=== PATIENT | male | born 1985 | race African-American/Black ===

== ENCOUNTER 2018-01-25 19:24 | Emergency (ER) | payer MEDICAID ==
[~2018-01-25] VITALS: Ht 177.8 cm; Wt 72.6 kg
[2018-01-25] MEDS ORDERED: Acetaminophen 500mg (ES) tab ORAL ONE (19:45)
[2018-01-25] MEDS ORDERED: STRIBILD TABLE1 EACH PO (20:09)
[2018-01-25] MEDS ORDERED: BACTRIM DOUBLE S1 E1 ORAL (20:09)
[2018-01-25 20:32] VITALS: BP 111/70
[2018-01-25 21:05] LABS: HEMATOCRIT 34.1 % (42.0-52.0); HEMOGLOBIN 11.4 G/DL (14.2-18.0); MEAN CORPUSCULAR VOLUME 84 FL (80-99); PLATELET COUNT 228 K/UL (150-450); RED BLOOD COUNT 4.08 M/UL (4.70-6.10); RED CELL DISTRIBUTION WIDTH 13.2 % (11.6-14.8)
[2018-01-25 21:12] LABS: ANION GAP 8 mmol/L (5-15); BLOOD UREA NITROGEN 8 mg/dL (7-18); CARBON DIOXIDE 28 MMOL/L (21-32); CHLORIDE 101 MMOL/L (98-107); CREATININE 1.1 MG/DL (0.55-1.30); POTASSIUM 3.3 MMOL/L (3.5-5.1); SODIUM 137 MMOL/L (136-145)
[2018-01-25 21:24] LABS: ALANINE AMINOTRANSFERASE 25 U/L (12-78); ALBUMIN 2.5 G/DL (3.4-5.0); ALBUMIN/GLOBULIN RATIO 0.4 (1.0-2.7); ALKALINE PHOSPHATASE 209 U/L (46-116); ASPARTATE AMINO TRANSFERASE 21 U/L (15-37); BILIRUBIN,TOTAL 0.3 MG/DL (0.2-1.0)
--- NOTE | 2018-01-25 21:59 | Emergency Room Report ---
History of Present Illness General Chief Complaint: Generalized Weakness Source: EMS Present Illness HPI 32-year-old male presents ED for evaluation of weakness. Brought in by EMS. States that he's been feeling weak for the last 10 days. States he has been using drugs but stopped approximately 10 days ago. Also having multiple episodes of diarrhea. Also feeling feverish. Temperature 102.4 in triage. History of HIV and states he is not taking his medications for several months now. Denies any cough. Denies any sick contacts or recent travel. No other aggravating relieving factors. Denies any other associated symptoms Allergies: Coded Allergies: No Known Allergies (Unverified , 01/25/18) Patient History Past Medical History: none Past Surgical History: none Pertinent Family History: none Social History: Denies: smoking, alcohol use, drug use Immunizations: UTD Reviewed Nursing Documentation: PMH: Agreed; PSxH: Agreed Review of Systems All Other Systems: negative except mentioned in HPI Physical Exam Vital Signs Date Time Temp Pulse Resp B/P (MAP) Pulse Ox O2 Delivery O2 Flow Rate FiO2 01/25/18 19:20 102.4 107 18 108/72 96 Room Air 102.4 Sp02 EP Interpretation: reviewed, normal General Appearance: no apparent distress, alert, GCS 15, non-toxic Head: normocephalic, atraumatic Eyes: bilateral eye normal inspection, bilateral eye PERRL ENT: hearing grossly normal, normal pharynx, no angioedema, normal voice Neck: full range of motion, supple/symm/no masses Respiratory: chest non-tender, lungs clear, normal breath sounds, speaking full sentences Cardiovascular #1: regular rate, rhythm, no edema Cardiovascular #2: 2+ carotid (R), 2+ carotid (L), 2+ radial (R), 2+ radial (L) , 2+ dorsalis pedis (R), 2+ dorsalis pedis (L) Gastrointestinal: normal bowel sounds, non tender, soft, non-distended, no guarding, no rebound Rectal: deferred Genitourinary: normal inspection, no CVA tenderness Musculoskeletal: back normal, gait/station normal, normal range of motion, non- tender Neurologic: alert, oriented x3, responsive, motor strength/tone normal, sensory intact, speech normal Psychiatric: judgement/insight normal, memory normal, mood/affect normal, no suicidal/homicidal ideation Reflexes: 3+ bicep (R), 3+ bicep (L), 3+ tricep (R), 3+ tricep (L), 3+ knee (R) , 3+ knee (L) Skin: normal color, no rash, warm/dry, well hydrated Lymphatic: no adenopathy Medical Decision Making Diagnostic Impression: Primary Impression: Episode of generalized weakness Additional Impressions: Colitis HIV (human immunodeficiency virus infection) ER Course Hospital Course 32-year-old male presenting to ED with generalized weakness, diarrhea, fever Differential diagnoses include: Pneumonia, UTI, sepsis, dehydration, MS/ unstable angina Clinical course Patient placed on stretcher. 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 After initial history and physical, I ordered labs, IV fluids, EKG, chest x-ray, blood cultures, UA. given tylenol for fever Labs - leukopenia, K 3.3, hb/hct stable, lactate ok CXR - no acute process Abx given. Given history of noncompliance with HIV meds and persistent diarrhea 10 days I believe patient should be admitted. IV hydration continued Because of insurance patient will be transferred I feel this is a highly complex case requiring extensive working including EKG/ Rhythm strip, Xray/CT/US, Blood/urine lab work, repeat exams while in ED, and administration of strong opiates/narcotics for pain control, admission to hospital or close patient follow up. Diagnosis - episode of generalized weakness, colitis, HIV Transferred in serious condition Labs Test 01/25/18 20:25 White Blood Count 3.0 K/UL (4.8-10.8) Red Blood Count 4.08 M/UL (4.70-6.10) Hemoglobin 11.4 G/DL (14.2-18.0) Hematocrit 34.1 % (42.0-52.0) Mean Corpuscular Volume 84 FL (80-99) Mean Corpuscular Hemoglobin 27.9 PG (27.0-31.0) Mean Corpuscular Hemoglobin Concent 33.4 G/DL (32.0-36.0) Red Cell Distribution Width 13.2 % (11.6-14.8) Platelet Count 228 K/UL (150-450) Mean Platelet Volume 7.1 FL (6.5-10.1) Neutrophils (%) (Auto) % (45.0-75.0) Lymphocytes (%) (Auto) % (20.0-45.0) Monocytes (%) (Auto) % (1.0-10.0) Eosinophils (%) (Auto) % (0.0-3.0) Basophils (%) (Auto) % (0.0-2.0) Sodium Level 137 MMOL/L (136-145) Potassium Level 3.3 MMOL/L (3.5-5.1) Chloride Level 101 MMOL/L (98-107) Carbon Dioxide Level 28 MMOL/L (21-32) Anion Gap 8 mmol/L (5-15) Blood Urea Nitrogen 8 mg/dL (7-18) Creatinine 1.1 MG/DL (0.55-1.30) Estimat Glomerular Filtration Rate > 60 mL/min (>60) Glucose Level 95 MG/DL (74-106) Lactic Acid Level 1.30 mmol/L (0.4-2.0) Calcium Level 8.0 MG/DL (8.5-10.1) Total Bilirubin 0.3 MG/DL (0.2-1.0) Aspartate Amino Transf (AST/SGOT) 21 U/L (15-37) Alanine Aminotransferase (ALT/SGPT) 25 U/L (12-78) Alkaline Phosphatase 209 U/L (46-116) Total Protein 8.4 G/DL (6.4-8.2) Albumin 2.5 G/DL (3.4-5.0) Globulin 5.9 g/dL Albumin/Globulin Ratio 0.4 (1.0-2.7) Chest X-Ray Diagnostic Results Chest X-Ray Diagnostic Results : Chest X-Ray Ordered: Yes # of Views/Limited/Complete: 1 View Indication: Other - weakness EP Interpretation: Yes Interpretation: no consolidation, no effusion, no pneumothorax, no acute cardiopulmonary disease Impression: No acute disease Electronically Signed by: Electronically signed by Claude Joaquin MD Last Vital Signs Date Time Temp Pulse Resp B/P (MAP) Pulse Ox O2 Delivery O2 Flow Rate FiO2 01/25/18 20:32 102.4 102 19 111/70 96 Room Air 102.4 Status: improved Disposition: XFER SHT-TRM HOSP Condition: Serious Referrals: [facility],REFERR[facility] (PCP) Claude Joaquin MD Jan 25, 2018 21:59
[2018-01-25 22:27] VITALS: BP 107/78
[2018-01-25] MEDS ORDERED: Ketorolac 30mg Inj ONE (22:54)
[2018-01-25] MEDS ORDERED: Ketorolac 30mg Inj IV ONE (23:00)
[2018-01-25 23:38] VITALS: BP 116/72
[2018-01-25 23:40] VITALS: BP 116/72
--- NOTE | 2018-01-26 12:33 | Diagnostic Imaging Report ---
This Indication: Weakness Technique: XRAY Chest 1v Comparison: None Findings: Heart size and mediastinal contours are within normal limits given technique. There is no focal consolidation, pneumothorax or pleural effusion. Osseous structures demonstrate no acute abnormality. Impression: No radiographic evidence of acute cardiopulmonary disease.
== END 2018-01-25 23:40 | disposition short-term general hospital (02) ==
LOC: EDBD 19:24 → EMR 20:49
DX: R53.1 Weakness (principal); K52.9 Noninfective gastroenteritis and colitis, unspecified
CPT/HCPCS: 36415; 71045; 80053; 83605; 85007; 85025; 87040; 87181; 96361; 96365; 96375; 99285; J0744; J1885

== ENCOUNTER 2018-09-19 13:56 | Inpatient (IN) | payer MEDICAID ==
[~2018-09-19] VITALS: Ht 177.8 cm; Wt 67.8 kg
[~2018-09-19 13:56] MED LIST: BACTRIM DOUBLE S1 E1 ORAL; STRIBILD TABLE1 EACH PO
--- NOTE | 2018-09-19 14:30 | NUR ---
ED Nurse Note: Pt c/o generalized body and denies injury. Pt also c/o diarrhea. Pt is AAO x4, and ambulates with steady gait.
[2018-09-19] MEDS ORDERED: Isovue-300 100ml vial INJ PRN (15:00)
[2018-09-19 15:18] VITALS: BP 122/75
[2018-09-19 15:22] LABS: BASOPHILS % (AUTO) 0.7 % (0.0-2.0); EOSINOPHILS % (AUTO) 0.4 % (0.0-3.0); HEMATOCRIT 33.5 % (42.0-52.0); HEMOGLOBIN 11.4 G/DL (14.2-18.0); LYMPHOCYTES % (AUTO) 26.7 % (20.0-45.0); MEAN CORPUSCULAR VOLUME 82 FL (80-99); MONOCYTES % (AUTO) 4.2 % (1.0-10.0); NEUTROPHILS % (AUTO) 68.1 % (45.0-75.0); PLATELET COUNT 423 K/UL (150-450); RED BLOOD COUNT 4.09 M/UL (4.70-6.10); WHITE BLOOD COUNT 4.9 K/UL (4.8-10.8)
--- NOTE | 2018-09-19 15:44 | NUR ---
ED Nurse Note: Pt finished drinking oral contrast at 1545.
[2018-09-19 15:47] LABS: CREATINE KINASE 61 U/L (26-308)
[2018-09-19 15:47] LABS: APPEARANCE,URINE SLIGHTLY CLOUDY; BILIRUBIN, URINE 1+ (NEGATIVE); GLUCOSE, URINE (UA) NEGATIVE (NEGATIVE); KETONES,URINE NEGATIVE (NEGATIVE); LEUKOCYTE ESTERASE ,URINE 1+ (NEGATIVE); NITRITE,URINE NEGATIVE (NEGATIVE); PH,URINE 6 (4.5-8.0); PROTEIN,URINE 2+ (NEGATIVE); UROBILINOGEN,URINE NORMAL MG/DL (0.0-1.0)
[2018-09-19 15:48] LABS: ALANINE AMINOTRANSFERASE 21 U/L (12-78); ALBUMIN 2.3 G/DL (3.4-5.0); ALBUMIN/GLOBULIN RATIO 0.3 (1.0-2.7); ALKALINE PHOSPHATASE 118 U/L (46-116); ANION GAP 14 mmol/L (5-15); ASPARTATE AMINO TRANSFERASE 25 U/L (15-37); BILIRUBIN,TOTAL 0.3 MG/DL (0.2-1.0); BLOOD UREA NITROGEN 12 mg/dL (7-18); CALCIUM 8.7 MG/DL (8.5-10.1); CARBON DIOXIDE 27 MMOL/L (21-32); CHLORIDE 97 MMOL/L (98-107); CREATININE 1.1 MG/DL (0.55-1.30); SODIUM 137 MMOL/L (136-145)
[2018-09-19 15:52] LABS: POTASSIUM 2.5 MMOL/L (3.5-5.1)
[2018-09-19 15:53] LABS: COLOR,URINE AMBER
[2018-09-19 16:40] VITALS: BP 124/83
--- NOTE | 2018-09-19 16:40 | NUR ---
ED Nurse Note: Received pt from Tx 2 room. pt stable and waiting for CT for 1710. hazardous waste material technician made aware.
--- NOTE | 2018-09-19 16:42 | NUR ---
ED Nurse Note: ultrasound technologist was reminded.
--- NOTE | 2018-09-19 17:00 | NUR ---
ED Nurse Note: pt went down for CT scan.
--- NOTE | 2018-09-19 17:10 | NUR ---
ED Nurse Note: Received phone call from CT that pt needs new IV line. went down and new iv line made on Lt ac 20 G.
--- NOTE | 2018-09-19 17:41 | NUR ---
ED Nurse Note: pt came back from CT scan in stable condition.
--- NOTE | 2018-09-19 19:07 | NUR ---
HAND-OFF: Report given to ZENAIDA Gates. all the orders carried.
[2018-09-19 19:10] VITALS: BP 126/86
[2018-09-19] MEDS ORDERED: GENVOYA TABLET1 EACH PO (19:26)
--- NOTE | 2018-09-19 19:45 | Emergency Room Report ---
History of Present Illness General Chief Complaint: Pain Source: EMS (Sammie Chairez) Present Illness HPI 32-year-old male with history of positive HIV for 10 years currently not treated with HIV medications here complaining of 2 weeks of continuous nonbloody diarrhea and vomiting. He reports he was recently hospitalized multiple times for the same issue and was diagnosed with hypokalemia. She has not yet followed up with his primary care physician for hypokalemia and has been intermittently taking his HIV medications for the past 10 years. He reports he has a prescription of his medication at the pharmacy which he has not taken yet. Denies any recent travel, cough, congestion, fever chills, rhinorrhea. He reports diffuse abdominal pain without radiation, rating the pain 7 out of 10 and intermittent. Complains of generalized body ache and reports being lethargic. Complains of chest pain however denies shortness of breath, palpitations, hematuria, blood in the stool or vomit.he reports recent methamphetamine use but reports he stopped using a week ago. (Sammie Chairez) Allergies: Coded Allergies: No Known Allergies (Unverified , 01/25/18) Patient History Past Medical History: see triage record Past Surgical History: none Pertinent Family History: none Social History: Reports: drug use Reviewed Nursing Documentation: PMH: Agreed; PSxH: Agreed (Sammie Chairez) Nursing Documentation-PMH Past Medical History: No History, Except For Hx Neurological Problems: No - HIV (Sammie Chairez) Review of Systems All Other Systems: negative except mentioned in HPI (Sammie Chairez) Physical Exam Vital Signs Date Time Temp Pulse Resp B/P (MAP) Pulse Ox O2 Delivery O2 Flow Rate FiO2 09/19/18 14:04 98.4 92 20 115/69 99 Room Air Sp02 EP Interpretation: abnormal General Appearance: alert, GCS 15, non-toxic, moderate distress, lethargic, thin Eyes: bilateral eye normal inspection, bilateral eye PERRL ENT: hearing grossly normal, normal pharynx, no angioedema, TMs + canals normal Neck: normal inspection, full range of motion, supple Respiratory: normal inspection, chest non-tender, lungs clear, no rhonchi Cardiovascular #1: normal inspection, normal peripheral pulses, regular rate, rhythm, no edema, no murmur Cardiovascular #2: 2+ radial (R), 2+ radial (L) Gastrointestinal: no organomegaly, no peritonitis, no bruit, non-distended, no hernia, no pulsatile mass, no rebound, guarding - diffuse Rectal: deferred Genitourinary: no CVA tenderness Musculoskeletal: normal inspection, back normal Neurologic: normal inspection, alert, oriented x3 Psychiatric: normal inspection Skin: normal inspection, normal color, no rash Lymphatic: normal inspection, no adenopathy (Sammie Chairez) Medical Decision Making PA Attestation all diagnosis and treatment plans were reviewed and discussed with my supervising physician Dr. Costa (Sammie Chairez) Diagnostic Impression: Primary Impression: Hypokalemia Additional Impressions: Noncompliance Diarrhea Qualified Codes: R19.7 - Diarrhea, unspecified ER Course 32-year-old male with history of positive HIV for 10 years currently not treated with HIV medications here complaining of 2 weeks of continuous nonbloody diarrhea and vomiting. He reports he was recently hospitalized multiple times for the same issue and was diagnosed with hypokalemia. She has not yet followed up with his primary care physician for hypokalemia and has been intermittently taking his HIV medications for the past 10 years. He reports he has a prescription of his medication at the pharmacy which he has not taken yet. Denies any recent travel, cough, congestion, fever chills, rhinorrhea. He reports diffuse abdominal pain without radiation, rating the pain 7 out of 10 and intermittent. Complains of generalized body ache and reports being lethargic. Complains of chest pain however denies shortness of breath, palpitations, hematuria, blood in the stool or vomit.he reports recent methamphetamine use but reports he stopped using a week ago. Ddx considered but are not limited to appendicitis, mesenteric ischemia, hypokalemia Vital signs: are WNL, pt. is afebrile H&PE are most consistent with hypokalemia, appendicitis ORDERS: abd CT with contrast, IV NS bolus, potassium ED INTERVENTIONS: potassium and IV bolus . to be admitted K+ 2.5, Hgb 11, Hct33, 1+ blood in UA (Sammie Chairez) ER Course Patient signout to [facility]. He was pending transferred to [facility]. Unfortunately, they do not have any beds over there. Patient was approved to be admitted here. Patient has HIV but noncompliant with his medication. Has profuse diarrhea. This is probably causing his hypokalemia. CT scan showed prominent appendix at 7 mm but no inflammatory changes. On my examination abdomen is soft. No right lower quadrant pain. This is unlikely to be appendicitis. Discussed the case with Dr. Fitch who will admit. (Jeff Amin MD) EKG Diagnostic Results Rate: normal Rhythm: NSR (Sammie Chairez) CT/MRI/US Diagnostic Results CT/MRI/US Diagnostic Results : Imaging Test Ordered: abd CT with contrast Impression CT ABDOMEN & PELVIS With Contrast: Apparent thickening of the colon may be related to underdistention or colitis. Prominent appendix measuring up to 7 mm. No significant periappendiceal inflammatory change, however examination is limited by paucity of intraperitoneal fat. Early acute uncomplicated appendicitis is not excluded. No free fluid, free air, or loculated fluid collection. (Sammie Chairez) Last Vital Signs Date Time Temp Pulse Resp B/P (MAP) Pulse Ox O2 Delivery O2 Flow Rate FiO2 09/19/18 19:10 98.5 89 15 126/86 98 Room Air (Sammie Chairez) Status: improved (Jeff Amin MD) Disposition: ADMITTED INPATIENT Condition: Serious Sammie Chairez Sep 19, 2018 19:45 Jeff Amin MD Sep 19, 2018 22:57
[2018-09-19] MEDS ORDERED: PEPCID AC10 MG PO (20:16)
[2018-09-19] MEDS ORDERED: LANSOPRAZOLE15 MG ORAL (20:16)
[2018-09-19] MEDS ORDERED: AZITHROMYCIN500 MG ORAL (20:16)
[2018-09-19] MEDS ORDERED: IBUPROFEN600 MG ORAL (20:16)
[2018-09-19] MEDS ORDERED: TUMS200 M1 PO (20:16)
[2018-09-19 20:40] VITALS: BP 139/82
--- NOTE | 2018-09-19 21:10 | NUR ---
Spoke with Afshan at [facility], all necessary information given. Will relay information to a doctor and call us back.
[2018-09-19 22:40] VITALS: BP 126/76
--- NOTE | 2018-09-19 23:21 | NUR ---
NURSE NOTES: Received report from ZENAIDA Barroso(ER), pt with diarrhea and pain, no past medical hx besides HIV positive, swabs obtained, med recon completed. will check vitals and belongings when pt arrives.
--- NOTE | 2018-09-19 23:24 | NUR ---
ED Nurse Note: PT report given to Suha Leon MED SURG. pt report, status, condition, and vital signs have been reported. pt vital signs are stable. pt is stable for transfer as per ERMD. pt brought up with all belongings.
--- NOTE | 2018-09-19 23:50 | NUR ---
NURSE NOTES: Pt brought up with belongings, refusing to allow me into his bag, I added pt wallet with $55cash 2 cards 2 cell phones to the belongings list and pt is keeping everything at the bedside, retrieved pt own meds and will give to pharmacy, Vitals 99.6T, 116/79, 94HR, 98%room air, 18rr. will contact Dr. Fitch for admitting orders.
--- NOTE | 2018-09-20 00:15 | NUR ---
NURSE NOTES: Contacted Dr. Fitch and received admitting orders. will follow through with orders.
[2018-09-20] MEDS ORDERED: Tums 500mg ORAL SCH (01:00)
[2018-09-20] MEDS ORDERED: Tums 500mg ORAL PRN (01:30)
[2018-09-20 04:00] VITALS: BP 113/77
[2018-09-20 06:55] LABS: BASOPHILS % (AUTO) 1.2 % (0.0-2.0); HEMATOCRIT 28.9 % (42.0-52.0); HEMOGLOBIN 9.7 G/DL (14.2-18.0); LYMPHOCYTES % (AUTO) 32.3 % (20.0-45.0); MEAN CORPUSCULAR VOLUME 82 FL (80-99); MONOCYTES % (AUTO) 6.8 % (1.0-10.0); NEUTROPHILS % (AUTO) 58.7 % (45.0-75.0); PLATELET COUNT 339 K/UL (150-450); RED BLOOD COUNT 3.54 M/UL (4.70-6.10); RED CELL DISTRIBUTION WIDTH 12.1 % (11.6-14.8); WHITE BLOOD COUNT 3.9 K/UL (4.8-10.8)
--- NOTE | 2018-09-20 07:11 | NUR ---
HAND-OFF: Report given to ZENAIDA Lobo.
[2018-09-20 07:22] LABS: ANION GAP 12 mmol/L (5-15); BLOOD UREA NITROGEN 10 mg/dL (7-18); CARBON DIOXIDE 26 MMOL/L (21-32); CHLORIDE 100 MMOL/L (98-107); CREATININE 1.1 MG/DL (0.55-1.30); SODIUM 137 MMOL/L (136-145)
[2018-09-20 07:25] LABS: POTASSIUM 2.5 MMOL/L (3.5-5.1)
[2018-09-20 08:00] VITALS: BP 112/76
--- NOTE | 2018-09-20 08:58 | NUR ---
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
[2018-09-20] MEDS ORDERED: Lansoprazole 15mg cap ORAL SCH (09:00)
--- NOTE | 2018-09-20 09:49 | Diagnostic Imaging Report ---
Indication: Abdominal pain Technique: Continuous helical transaxial imaging of the abdomen and pelvis was obtained from the lung bases to the pubic symphysis during intravenous contrast administration. Coronal 2-D reformats were also obtained. Study obtained in a Siemens sensation [address] Automatic Exposure Control was utilized. Total Dose length Product (DLP): 490.[address] Dose Index Volume (CTDIvol): 9.67 mGy Comparison: None Findings: There is a relative possibility of intra-abdominal fat. The kidneys are scanned during arterial phase and not optimally evaluated. The gallbladder is contracted. No evidence of bowel obstruction or free air. The colon is diffusely underdistended. Some fecal retention in the rectal vault noted. The appendix is normal. The bladder is nondistended. No abnormalities of solid organs appreciated. IMPRESSION: No acute findings appreciated. Limited evaluation The CT scanner at [facility] is accredited by the [employer] and the scans are performed using dose optimization techniques as appropriate to a performed exam including Automatic Exposure control.
[2018-09-20] MEDS: cefTRIAXone 1 GM in D5W 55 ML IVPB SCH (09:54)
[2018-09-20 10:35] LABS: ANION GAP 12 mmol/L (5-15); BLOOD UREA NITROGEN 9 mg/dL (7-18); CARBON DIOXIDE 28 MMOL/L (21-32); CHLORIDE 101 MMOL/L (98-107); CREATININE 1.1 MG/DL (0.55-1.30); SODIUM 139 MMOL/L (136-145)
[2018-09-20 10:36] LABS: POTASSIUM 2.4 MMOL/L (3.5-5.1)
--- NOTE | 2018-09-20 10:50 | General Progress Note ---
Assessment/Plan Problem List: (1) Anemia ICD Codes: D64.9 - Anemia, unspecified SNOMED: 130570675 (2) HIV (human immunodeficiency virus infection) ICD Codes: B20 - Human immunodeficiency virus [HIV] disease SNOMED: 62928817 (3) Diarrhea ICD Codes: R19.7 - Diarrhea, unspecified SNOMED: 43252674 Qualifiers: Qualified Codes: R19.7 - Diarrhea, unspecified (4) Hypokalemia ICD Codes: E87.6 - Hypokalemia SNOMED: 27457082 (5) Noncompliance ICD Codes: Z91.19 - Patient's noncompliance with other medical treatment and regimen SNOMED: 0874621 Assessment/Plan neg C.diff add imodium prn fu CD4 count and will order more stool studies if low CD4 count recommend ID consult replace K anemia work up colonoscopy if needed and when K is corrected CT reviewed>>> no acute finding Subjective ROS Limited/Unobtainable: Yes Allergies: Coded Allergies: No Known Allergies (Unverified , 01/25/18) Objective Last 24 Hour Vital Signs Date Time Temp Pulse Resp B/P (MAP) Pulse Ox O2 Delivery O2 Flow Rate FiO2 09/20/18 08:00 98.5 89 20 112/76 (88) 100 09/20/18 04:00 99.0 92 18 113/77 (89) 100 09/20/18 00:02 Room Air 09/19/18 23:23 98.5 62 16 130/75 99 Room Air 09/19/18 22:40 98.5 62 16 126/76 99 Room Air 09/19/18 20:40 98.5 71 16 139/82 99 Room Air 09/19/18 19:10 98.5 89 15 126/86 98 Room Air 09/19/18 16:40 98.5 89 14 124/83 99 Room Air 09/19/18 15:18 98.6 76 18 122/75 100 Room Air 09/19/18 14:04 98.4 92 20 115/69 99 Room Air Intake and Output 09/19/18 09/20/18 19:00 07:00 Intake Total 1000 ml 1335 ml Balance 1000 ml 1335 ml Intake Oral 0 ml 960 ml IV Total 1000 ml 375 ml # Voids 3 # Bowel Movements 4 Laboratory Tests 09/19/18 15:03: White Blood Count 4.9, Red Blood Count 4.09L, Hemoglobin 11.4L, Hematocrit 33.5L , Mean Corpuscular Volume 82, Mean Corpuscular Hemoglobin 27.9, Mean Corpuscular Hemoglobin Concent 34.0, Red Cell Distribution Width 12.0, Platelet Count 423, Mean Platelet Volume 5.6L, Neutrophils (%) (Auto) 68.1, Lymphocytes ( %) (Auto) 26.7, Monocytes (%) (Auto) 4.2, Eosinophils (%) (Auto) 0.4, Basophils (%) (Auto) 0.7, Sodium Level 137, Potassium Level 2.5*L, Chloride Level 97L, Carbon Dioxide Level 27, Anion Gap 14, Blood Urea Nitrogen 12, Creatinine 1.1, Estimat Glomerular Filtration Rate > 60, Glucose Level 93, Calcium Level 8.7, Total Bilirubin 0.3, Aspartate Amino Transf (AST/SGOT) 25, Alanine Aminotransferase (ALT/SGPT) 21, Alkaline Phosphatase 118H, Total Creatine Kinase 61, Total Protein 9.4H, Albumin 2.3L, Globulin 7.1, Albumin/Globulin Ratio 0.3L, Lipase 125 09/19/18 15:27: Urine Color [place], Urine Appearance Slightly cloudy, Urine pH 6, Urine Specific [place] 1.015, Urine Protein 2+H, Urine Glucose (UA) Negative, Urine Ketones Negative, Urine Blood 2+H, Urine Nitrite Negative, Urine Bilirubin 1+H, Urine Ictotest Negative, Urine Urobilinogen Normal, Urine Leukocyte Esterase 1+H, Urine RBC 2-4H, Urine WBC 10-15H, Urine Squamous Epithelial Cells Few, Urine Transitional Epithelial Cells ModerateH, Urine Bacteria Few, Urine Mucus ModerateH, Urine Opiates Screen Negative, Urine Barbiturates Screen Negative, Phencyclidine (PCP) Screen Negative, Urine Amphetamines Screen Negative, Urine Benzodiazepines Screen Negative, Urine Cocaine Screen Negative, Urine Marijuana (THC) Screen PositiveH 09/20/18 06:00: White Blood Count 3.9L, Red Blood Count 3.54L, Hemoglobin 9.7L, Hematocrit 28.9L , Mean Corpuscular Volume 82, Mean Corpuscular Hemoglobin 27.4, Mean Corpuscular Hemoglobin Concent 33.6, Red Cell Distribution Width 12.1, Platelet Count 339, Mean Platelet Volume 6.2L, Neutrophils (%) (Auto) 58.7, Lymphocytes ( %) (Auto) 32.3, Monocytes (%) (Auto) 6.8, Eosinophils (%) (Auto) 1.0, Basophils (%) (Auto) 1.2, Sodium Level 137, Potassium Level 2.5*L, Chloride Level 100, Carbon Dioxide Level 26, Anion Gap 12, Blood Urea Nitrogen 10, Creatinine 1.1, Estimat Glomerular Filtration Rate > 60, Glucose Level 89, Calcium Level 8.0L 09/20/18 10:00: Sodium Level 139, Potassium Level 2.4*L, Chloride Level 101, Carbon Dioxide Level 28, Anion Gap 12, Blood Urea Nitrogen 9, Creatinine 1.1, Estimat Glomerular Filtration Rate > 60, Glucose Level 87, Calcium Level 8.0L Height (Feet): 5 Height (Inches): 10.00 Weight (Pounds): 150 General Appearance: alert EENT: normal ENT inspection Neck: supple Cardiovascular: normal rate Respiratory/Chest: lungs clear Abdomen: normal bowel sounds, non tender, soft Extremities: non-tender Francis Angel MD Sep 20, 2018 10:50
--- NOTE | 2018-09-20 11:30 | NUR ---
NURSE NOTES: Nurse has spoken to patient regarding his own med Genvoya. She asked him to try to get someone to bring that medication here, pt said he'll try.
[2018-09-20 12:00] VITALS: BP 124/85
--- NOTE | 2018-09-20 12:54 | Consultation ---
Consult Note Consult Note asked to eval at the request of Dr garcia 32-year-old male with history of positive HIV for 10 years currently not treated with HIV medications here complaining of 2 weeks of continuous nonbloody diarrhea and vomiting. He reports he was recently hospitalized multiple times for the same issue and was diagnosed with hypokalemia. She has not yet followed up with his primary care physician for hypokalemia and has been intermittently taking his HIV medications for the past 10 years. He reports he has a prescription of his medication at the pharmacy which he has not taken yet. Denies any recent travel, cough, congestion, fever chills, rhinorrhea. He reports diffuse abdominal pain without radiation, rating the pain 7 out of 10 and intermittent. Complains of generalized body ache and reports being lethargic. Complains of chest pain however denies shortness of breath, palpitations, hematuria, blood in the stool or vomit.he reports recent methamphetamine use but reports he stopped using a week ago. interviewed data reviewed examined Assessment/Plan HypoKalemia Diarrhea Anemia HIV Noncompliant with meds KCl IV and PO [place] Per GI and ID Martell Cha MD Sep 20, 2018 12:54
--- NOTE | 2018-09-20 13:30 | NUR ---
*-* NO INSURANCE INFORMATION IN THE BAR TO SEND CLINICALS OR REVIEWS *-*
[2018-09-20] MEDS: D5NS w/KCl 40mEq 1000ml 1,000 ML IV SCH (14:43)
[2018-09-20] MEDS ORDERED: Spironolactone 25mg tab ORAL SCH (15:00)
[2018-09-20] MEDS: Morphine Sulfate 2mg/ml Inj(IV/IM USE ONLY) IVP PRN (15:31)
[2018-09-20 16:00] VITALS: BP 125/85
--- NOTE | 2018-09-20 16:38 | Infectious Diseases Prog Note ---
Assessment/Plan Problems: (1) HIV (human immunodeficiency virus infection) Assessment & Plan: poorly complaint with meds, will screen for syphilis and hepatitis , will order CD4 counts and viral load . (2) Diarrhea Assessment & Plan: will order stool culture, ova/parasites, Giardia and entamoeba serology , start metronidazole , continue ceftriaxone (3) Anemia Assessment & Plan: will screen for stool Hemoccult , GI is following may need colonoscopy for further eval (4) Noncompliance Assessment & Plan: patient was adviced to take his HIV meds and to follow up with HIV provider at [facility] which he confirmed to do upon discharge (5) Drug abuse Assessment & Plan: recommend rehabilitation and counseling Subjective Allergies: Coded Allergies: No Known Allergies (Unverified , 01/25/18) Objective Vital Signs Last 24 Hour Vital Signs Date Time Temp Pulse Resp B/P (MAP) Pulse Ox O2 Delivery O2 Flow Rate FiO2 09/20/18 12:00 98.3 88 18 124/85 (98) 100 09/20/18 09:00 Room Air 09/20/18 08:00 98.5 89 20 112/76 (88) 100 09/20/18 04:00 99.0 92 18 113/77 (89) 100 09/20/18 00:02 Room Air 09/19/18 23:23 98.5 62 16 130/75 99 Room Air 09/19/18 22:40 98.5 62 16 126/76 99 Room Air 09/19/18 20:40 98.5 71 16 139/82 99 Room Air 09/19/18 19:10 98.5 89 15 126/86 98 Room Air 09/19/18 16:40 98.5 89 14 124/83 99 Room Air Height (Feet): 5 Height (Inches): 10.00 Weight (Pounds): 150 Microbiology Date/Time Source Procedure Growth Status 09/20/18 01:30 Stool Clostridium difficile Toxin Assay - Final Complete 09/19/18 15:27 Urine,Clean Catch Urine Culture - Preliminary NO GROWTH Resulted 09/19/18 19:30 Rectum Received Laboratory Tests Test 09/20/18 06:00 09/20/18 10:00 09/20/18 10:30 White Blood Count 3.9 K/UL (4.8-10.8) L Red Blood Count 3.54 M/UL (4.70-6.10) L Hemoglobin 9.7 G/DL (14.2-18.0) L Hematocrit 28.9 % (42.0-52.0) L Mean Corpuscular Volume 82 FL (80-99) Mean Corpuscular Hemoglobin 27.4 PG (27.0-31.0) Mean Corpuscular Hemoglobin Concent 33.6 G/DL (32.0-36.0) Red Cell Distribution Width 12.1 % (11.6-14.8) Platelet Count 339 K/UL (150-450) Mean Platelet Volume 6.2 FL (6.5-10.1) L Neutrophils (%) (Auto) 58.7 % (45.0-75.0) Lymphocytes (%) (Auto) 32.3 % (20.0-45.0) Monocytes (%) (Auto) 6.8 % (1.0-10.0) Eosinophils (%) (Auto) 1.0 % (0.0-3.0) Basophils (%) (Auto) 1.2 % (0.0-2.0) Sodium Level 137 MMOL/L (136-145) 139 MMOL/L (136-145) Potassium Level 2.5 MMOL/L (3.5-5.1) *L 2.4 MMOL/L (3.5-5.1) *L Chloride Level 100 MMOL/L (98-107) 101 MMOL/L (98-107) Carbon Dioxide Level 26 MMOL/L (21-32) 28 MMOL/L (21-32) Anion Gap 12 mmol/L (5-15) 12 mmol/L (5-15) Blood Urea Nitrogen 10 mg/dL (7-18) 9 mg/dL (7-18) Creatinine 1.1 MG/DL (0.55-1.30) 1.1 MG/DL (0.55-1.30) Estimat Glomerular Filtration Rate > 60 mL/min (>60) > 60 mL/min (>60) Glucose Level 89 MG/DL (74-106) 87 MG/DL (74-106) Calcium Level 8.0 MG/DL (8.5-10.1) L 8.0 MG/DL (8.5-10.1) L Thyroid Stimulating Hormone (TSH) 0.587 uiU/mL (0.358-3.740) C-Reactive Protein, Quantitative 14.1 mg/dL (0.00-0.90) H Current Medications Medications (Trade) Dose Ordered Sig/Peter Route PRN Reason Start Time Stop Time Status Last Admin Dose Admin Acetaminophen (Tylenol) 650 mg Q4H PRN ORAL Mild Pain/Temp > 100.5 09/20/18 08:30 10/20/18 08:29 Barium Sulfate (Readi-Cat 2) 450 ml NOW PRN ORAL Radiology Procedure 09/19/18 15:00 09/21/18 14:50 Calcium Carbonate (Tums) 500 mg Q4H PRN ORAL Abdominal cramps 09/20/18 01:30 10/20/18 01:29 09/20/18 09:53 Ceftriaxone Sodium 1 gm/ Dextrose 55 ml @ 110 mls/hr Q24H IVPB 09/20/18 09:00 09/27/18 08:59 09/20/18 09:54 Dextrose/ Electrolytes 1,000 ml @ 75 mls/hr [id number] IV 09/20/18 14:00 10/20/18 13:59 09/20/18 14:43 Loperamide HCl (Imodium) 2 mg Q6H PRN NG Diarrhea 09/20/18 10:45 10/20/18 10:44 Morphine Sulfate (Morphine Sulfate) 1 mg EVERY 6 HOURS PRN IVP Severe Breakthru Pain (>7) 09/20/18 00:45 09/27/18 00:44 09/20/18 15:31 Non-Formulary Medication (Non-Formulary Med) 1 ea DAILY ORAL 09/20/18 09:00 10/20/18 08:59 UNV Ondansetron HCl (Zofran) 4 mg EVERY 4 HOURS PRN IVP Nausea & Vomiting 09/20/18 00:45 10/20/18 00:44 Pantoprazole (Protonix) 40 mg EVERY 12 HOURS ORAL 09/20/18 21:00 10/20/18 20:59 Potassium Chloride (K-Dur) 40 meq THREE TIMES A DAY ORAL 09/20/18 13:00 10/20/18 12:59 09/20/18 14:42 Spironolactone (Aldactone) 25 mg DAILY ORAL 09/21/18 09:00 10/21/18 08:59 Spironolactone (Aldactone) 25 mg ONCE ORAL 09/20/18 15:00 09/20/18 18:00 09/20/18 14:44 Diana Alexander M.D. Sep 20, 2018 16:38
[2018-09-20] MEDS: metroNIDAZOLE 500mg tab ORAL SCH ×2 (18:03→21:02)
[2018-09-20 20:00] VITALS: BP 109/80
[2018-09-21] VITALS: BP 113/72
[2018-09-21] MEDS: D5NS w/KCl 40mEq 1000ml 1,000 ML IV SCH ×2 (03:20→13:12)
[2018-09-21 04:00] VITALS: BP 118/70
[2018-09-21] MEDS: metroNIDAZOLE 500mg tab ORAL SCH ×3 (06:05→21:40)
--- NOTE | 2018-09-21 07:15 | NUR ---
HAND-OFF: Report given to ZENAIDA Grace.
--- NOTE | 2018-09-21 07:30 | NUR ---
NURSE NOTES: Received pt from ZENAIDA MATHIAS. Pt is alert and orient x4. Pt is in RA. No SOB or acute respiratory distress noted. pt has diarrhea. pt has intact iv access LAC 20G is running well. pt is eating breakfast by himself. all needs attended, bed is locked and is in the lowest position. call light within easy reach. will continue to monitor.
[2018-09-21 07:33] LABS: BASOPHILS % (AUTO) 1.1 % (0.0-2.0); EOSINOPHILS % (AUTO) 2.3 % (0.0-3.0); HEMATOCRIT 29.1 % (42.0-52.0); HEMOGLOBIN 9.6 G/DL (14.2-18.0); LYMPHOCYTES % (AUTO) 33.1 % (20.0-45.0); MEAN CORPUSCULAR VOLUME 82 FL (80-99); MONOCYTES % (AUTO) 5.2 % (1.0-10.0); NEUTROPHILS % (AUTO) 58.4 % (45.0-75.0); PLATELET COUNT 351 K/UL (150-450); RED BLOOD COUNT 3.54 M/UL (4.70-6.10); RED CELL DISTRIBUTION WIDTH 12.2 % (11.6-14.8); WHITE BLOOD COUNT 3.7 K/UL (4.8-10.8)
[2018-09-21 07:59] LABS: PHOSPHORUS 2.5 MG/DL (2.5-4.9)
[2018-09-21 08:00] VITALS: BP 122/86
[2018-09-21 08:17] LABS: ALANINE AMINOTRANSFERASE 16 U/L (12-78); ALBUMIN 1.8 G/DL (3.4-5.0); ALBUMIN/GLOBULIN RATIO 0.3 (1.0-2.7); ALKALINE PHOSPHATASE 97 U/L (46-116); ANION GAP 9 mmol/L (5-15); ASPARTATE AMINO TRANSFERASE 16 U/L (15-37); BILIRUBIN,TOTAL 0.1 MG/DL (0.2-1.0); BLOOD UREA NITROGEN 7 mg/dL (7-18); CALCIUM 7.9 MG/DL (8.5-10.1); CARBON DIOXIDE 26 MMOL/L (21-32); CHLORIDE 105 MMOL/L (98-107); FERRITIN 527 NG/ML (8-388); POTASSIUM 3.2 MMOL/L (3.5-5.1); SODIUM 140 MMOL/L (136-145)
[2018-09-21 08:18] LABS: % IRON SATURATION 29 % (15-50); IRON 36 ug/dL (50-175); TOTAL IRON BINDING CAPACITY 126 ug/dL (250-450)
--- NOTE | 2018-09-21 08:43 | General Progress Note ---
Assessment/Plan Problem List: (1) Anemia ICD Codes: D64.9 - Anemia, unspecified SNOMED: 709369514 (2) HIV (human immunodeficiency virus infection) ICD Codes: B20 - Human immunodeficiency virus [HIV] disease SNOMED: 94443773 (3) Diarrhea ICD Codes: R19.7 - Diarrhea, unspecified SNOMED: 60662532 Qualifiers: Qualified Codes: R19.7 - Diarrhea, unspecified (4) Hypokalemia ICD Codes: E87.6 - Hypokalemia SNOMED: 22726668 (5) Noncompliance ICD Codes: Z91.19 - Patient's noncompliance with other medical treatment and regimen SNOMED: 4782420 Assessment/Plan neg C.diff imodium prn prn fu CD4 count and will order more stool studies if low CD4 count recommend ID consult replace K replace folate colonoscopy if needed and when K is corrected CT reviewed>>> no acute finding Subjective ROS Limited/Unobtainable: Yes Allergies: Coded Allergies: No Known Allergies (Unverified , 01/25/18) Objective Last 24 Hour Vital Signs Date Time Temp Pulse Resp B/P (MAP) Pulse Ox O2 Delivery O2 Flow Rate FiO2 09/21/18 08:00 97.6 85 16 122/86 (98) 100 09/21/18 04:00 98.3 86 18 118/70 (86) 100 09/21/18 00:00 98.7 87 17 113/72 (86) 99 09/20/18 22:52 Room Air 09/20/18 20:00 99.6 92 17 109/80 (90) 100 09/20/18 16:01 98.0 09/20/18 16:00 98.0 91 20 125/85 (98) 100 09/20/18 12:00 98.3 88 18 124/85 (98) 100 09/20/18 09:00 Room Air Intake and Output 09/20/18 09/21/18 19:00 07:00 Intake Total 2550 ml 1300 ml Balance 2550 ml 1300 ml Intake Oral 1720 ml 850 ml IV Total 830 ml 450 ml # Voids 4 3 # Bowel Movements 4 3 Laboratory Tests 09/20/18 10:00: Sodium Level 139, Potassium Level 2.4*L, Chloride Level 101, Carbon Dioxide Level 28, Anion Gap 12, Blood Urea Nitrogen 9, Creatinine 1.1, Estimat Glomerular Filtration Rate > 60, Glucose Level 87, Calcium Level 8.0L, Thyroid Stimulating Hormone (TSH) 0.587 09/20/18 10:30: C-Reactive Protein, Quantitative 14.1H 09/20/18 16:40: Rapid Plasma Reagin [Pending], Entamoeba histolytica Antibody [Pending], Hepatitis B Surface Antigen Negative, Hepatitis B Surface Antibody <3.1L, Hepatitis C Antibody <0.1, HIV-1 RNA (PCR) log10 Value [Pending], HIV-1 RNA Ultraquantitative (PCR) [Pending] 09/20/18 21:00: Stool Occult Blood [Pending], Giardia Antigen [Pending] 09/21/18 05:50: White Blood Count [Pending], Red Blood Count 3.54L, Hemoglobin 9.6L, Hematocrit 29.1L, Mean Corpuscular Volume 82, Mean Corpuscular Hemoglobin 27.1, Mean Corpuscular Hemoglobin Concent 32.9, Red Cell Distribution Width 12.2, Platelet Count 351, Mean Platelet Volume 6.3L, Neutrophils (%) (Auto) 58.4, Lymphocytes ( %) (Auto) 33.1, Monocytes (%) (Auto) 5.2, Eosinophils (%) (Auto) 2.3, Basophils (%) (Auto) 1.1, Lymphocytes [Pending], Sodium Level 140, Potassium Level 3.2L, Chloride Level 105, Carbon Dioxide Level 26, Anion Gap 9, Blood Urea Nitrogen 7 , Creatinine 1.0, Estimat Glomerular Filtration Rate > 60, Glucose Level 88, Uric Acid 4.7, Calcium Level 7.9L, Phosphorus Level 2.5, Magnesium Level 1.1L, Iron Level 36L, Total Iron Binding Capacity 126L, Percent Iron Saturation 29, Unsaturated Iron Binding 90L, Ferritin 527H, Total Bilirubin 0.1L, Gamma Glutamyl Transpeptidase 14, Aspartate Amino Transf (AST/SGOT) 16, Alanine Aminotransferase (ALT/SGPT) 16, Alkaline Phosphatase 97, Lactate Dehydrogenase [ Pending], C-Reactive Protein, Quantitative 10.6H, Pro-B-Type Natriuretic Peptide 98, Total Protein 7.6, Albumin 1.8L, Globulin 5.8, Albumin/Globulin Ratio 0.3L, Vitamin B12 Level 1102H, Folate 4.2L, Free Thyroxine 1.14, Percent CD3 Cells [Pending], Absolute CD3 Count [Pending], Percent CD4 Cells [Pending], Absolute CD4 Count [Pending], T-Lymphocyte CD4/CD8 Ratio [Pending], Percent CD8 Cells [Pending], Absolute CD8 Count [Pending] Height (Feet): 5 Height (Inches): 10.00 Weight (Pounds): 150 General Appearance: alert EENT: normal ENT inspection Neck: supple Cardiovascular: normal rate Respiratory/Chest: lungs clear Abdomen: normal bowel sounds, non tender, soft Extremities: non-tender Francis Angel MD Sep 21, 2018 08:43
[2018-09-21] MEDS ORDERED: Spironolactone 25mg tab ORAL SCH (09:00)
[2018-09-21] MEDS: cefTRIAXone 1 GM in D5W 55 ML IVPB SCH (09:28)
[2018-09-21] MEDS: Spironolactone 25mg tab ORAL SCH (09:46)
[2018-09-21 12:00] VITALS: BP 132/80
--- NOTE | 2018-09-21 13:14 | NUR ---
NURSE NOTES: iv fluid was finished and started new bag at this time. will continue to monitor.
--- NOTE | 2018-09-21 13:33 | Nephrology Progress Note ---
Assessment/Plan Problem List: (1) Hypokalemia (2) Anemia (3) Diarrhea (4) HIV (human immunodeficiency virus infection) Assessment HypoKalemia improved Low mag Diarrhea Anemia HIV Noncompliant with meds low folate Plan KCl IV and PO [place] IV Mag Per GI and ID monitor lytes folic acid Objective Objective Last 24 Hour Vital Signs Date Time Temp Pulse Resp B/P (MAP) Pulse Ox O2 Delivery O2 Flow Rate FiO2 09/21/18 12:00 97.3 86 20 132/80 (97) 100 09/21/18 09:00 Room Air 09/21/18 08:00 97.6 85 16 122/86 (98) 100 09/21/18 04:00 98.3 86 18 118/70 (86) 100 09/21/18 00:00 98.7 87 17 113/72 (86) 99 09/20/18 22:52 Room Air 09/20/18 20:00 99.6 92 17 109/80 (90) 100 09/20/18 16:01 98.0 09/20/18 16:00 98.0 91 20 125/85 (98) 100 Intake and Output 09/20/18 09/21/18 19:00 07:00 Intake Total 2550 ml 1375 ml Balance 2550 ml 1375 ml Intake Oral 1720 ml 850 ml IV Total 830 ml 525 ml # Voids 4 3 # Bowel Movements 4 3 Laboratory Tests 09/20/18 16:40: Rapid Plasma Reagin ReactiveH, Rapid Plasma Reagin Confirmation 1:8H, Entamoeba histolytica Antibody [Pending], Hepatitis B Surface Antigen Negative, Hepatitis B Surface Antibody <3.1L, Hepatitis C Antibody <0.1, HIV-1 RNA (PCR) log10 Value [Pending], HIV-1 RNA Ultraquantitative (PCR) [Pending] 09/20/18 21:00: Stool Occult Blood [Pending], Giardia Antigen [Pending] 09/21/18 05:50: White Blood Count [Pending], Red Blood Count 3.54L, Hemoglobin 9.6L, Hematocrit 29.1L, Mean Corpuscular Volume 82, Mean Corpuscular Hemoglobin 27.1, Mean Corpuscular Hemoglobin Concent 32.9, Red Cell Distribution Width 12.2, Platelet Count 351, Mean Platelet Volume 6.3L, Neutrophils (%) (Auto) 58.4, Lymphocytes ( %) (Auto) 33.1, Monocytes (%) (Auto) 5.2, Eosinophils (%) (Auto) 2.3, Basophils (%) (Auto) 1.1, Lymphocytes [Pending], Sodium Level 140, Potassium Level 3.2L, Chloride Level 105, Carbon Dioxide Level 26, Anion Gap 9, Blood Urea Nitrogen 7 , Creatinine 1.0, Estimat Glomerular Filtration Rate > 60, Glucose Level 88, Uric Acid 4.7, Calcium Level 7.9L, Phosphorus Level 2.5, Magnesium Level 1.1L, Iron Level 36L, Total Iron Binding Capacity 126L, Percent Iron Saturation 29, Unsaturated Iron Binding 90L, Ferritin 527H, Total Bilirubin 0.1L, Gamma Glutamyl Transpeptidase 14, Aspartate Amino Transf (AST/SGOT) 16, Alanine Aminotransferase (ALT/SGPT) 16, Alkaline Phosphatase 97, Lactate Dehydrogenase 207, C-Reactive Protein, Quantitative 10.6H, Pro-B-Type Natriuretic Peptide 98, Total Protein 7.6, Albumin 1.8L, Globulin 5.8, Albumin/Globulin Ratio 0.3L, Vitamin B12 Level 1102H, Folate 4.2L, Free Thyroxine 1.14, Percent CD3 Cells [ Pending], Absolute CD3 Count [Pending], Percent CD4 Cells [Pending], Absolute CD4 Count [Pending], T-Lymphocyte CD4/CD8 Ratio [Pending], Percent CD8 Cells [ Pending], Absolute CD8 Count [Pending] Height (Feet): 5 Height (Inches): 10.00 Weight (Pounds): 150 Martell Cha MD Sep 21, 2018 13:33
--- NOTE | 2018-09-21 13:51 | History and Physical Report ---
DATE OF ADMISSION: 09/19/2018 HISTORY OF PRESENT ILLNESS: This is a young 32-year-old male, who came to the emergency room for having diarrhea and was found to have hypokalemia. PAST MEDICAL HISTORY: Significant for HIV. MEDICATIONS: See the list, Zithromax, ibuprofen, Prilosec, Nexium, and . PHYSICAL EXAMINATION: GENERAL: This is a young male, currently looks little dehydrated but feels better. Diarrhea is also resolving, had only two times last night. VITAL SIGNS: Blood pressure 112/76, pulse 89, no fever. SKIN: Good skin turgor. HEENT: NAD. CHEST: Bilateral clear. CARDIOVASCULAR: Regular rhythm. ABDOMEN: Soft. Positive bowel sounds. EXTREMITIES: CCE. NEUROLOGICAL: Generalized weakness. LABORATORY EXAMINATION: White counts 3.9, hemoglobin 9.7, hematocrit 29, platelets are 239. His chemistry panel, potassium is still 2.5, BUN 10, creatinine 1.1. Urine test is 1+ leukocyte esterase, and moderate 1+ bilirubin. Toxicology screen is positive for marijuana. ASSESSMENT: 1. Recurrent diarrhea. 2. Hypokalemia. 3. UTI. 4. Marijuana abuse. PLAN: We will currently continue IV fluids, IV potassium chloride, and consider ID consult. Encourage p.o. fluid. Waiting for C. difficile. Continue ceftriaxone, Tylenol, Zofran. Elian Fitch M.D. DR: Omid JOB#: [id number] CC:
--- NOTE | 2018-09-21 15:07 | NUR ---
*-* INSURANCE *-* ALL CLINICALS HAVE BEEN FAXED TO: DENNY HORVATH: HIRAM P- [phone] X [facility] F- [phone] PLEASE FAX THE REVIEW /CLINICAL PT BELONGS TO [facility]
--- NOTE | 2018-09-21 15:10 | NUR ---
BUSINESS INTEGRATION ANALYSTBARREL RIFLER BROACH SI:HYPOKALEMIA . ANEMIA VS: BP 118/70, P 85, T 97.3, RR 16, SpO2 100 K 3.2, WBC 3.7, RBC 3.54, Hct 9.6, Hgb 29.1, Mag. 1.1 IS:FOLIC ACID 5mg MAGNESIUM SULFATE 100ml IVPB ALDACTONE 25mg PROTONIX 40mg K-DUR 40meq FLAGYL 500mg D5/ ELECTROLYTES x1L IV CEFTRIAXONE 55ml IVPB MED/SURG STATUS
[2018-09-21] MEDS: Morphine Sulfate 2mg/ml Inj(IV/IM USE ONLY) IVP PRN (15:15)
--- NOTE | 2018-09-21 15:45 | Infectious Diseases Prog Note ---
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 continue genvoya (2) Diarrhea Assessment & Plan: await stool culture, ova/parasites, Giardia and entamoeba serology , continue metronidazole , and ceftriaxone. recommend colonoscopy for further eval (3) Anemia Assessment & Plan: screening for stool Hemoccult is pending , GI is following may need colonoscopy for further eval (4) Noncompliance Assessment & Plan: patient was adviced to take his HIV meds and to follow up with HIV provider at [facility] which he confirmed to do upon discharge (5) Drug abuse Assessment & Plan: recommend rehabilitation and counseling Subjective Constitutional: Reports: no symptoms HEENT: Reports: no symptoms Respiratory: Reports: no symptoms Breasts: Reports: no symptoms Cardiovascular: Reports: no symptoms Gastrointestinal/Abdominal: Reports: diarrhea, bloating Genitourinary: Reports: no symptoms Neurologic: Reports: no symptoms Psychiatric: Reports: no symptoms Skin: Reports: no symptoms Endocrine: Reports: no symptoms Hematologic: Reports: no symptoms Musculoskeletal: Reports: no symptoms Allergies: Coded Allergies: No Known Allergies (Unverified , 01/25/18) Objective Vital Signs Last 24 Hour Vital Signs Date Time Temp Pulse Resp B/P (MAP) Pulse Ox O2 Delivery O2 Flow Rate FiO2 09/21/18 12:00 97.3 86 20 132/80 (97) 100 09/21/18 09:00 Room Air 09/21/18 08:00 97.6 85 16 122/86 (98) 100 09/21/18 04:00 98.3 86 18 118/70 (86) 100 09/21/18 00:00 98.7 87 17 113/72 (86) 99 09/20/18 22:52 Room Air 09/20/18 20:00 99.6 92 17 109/80 (90) 100 09/20/18 16:01 98.0 09/20/18 16:00 98.0 91 20 125/85 (98) 100 Height (Feet): 5 Height (Inches): 10.00 Weight (Pounds): 150 General Appearance: WD/WN, no acute distress HEENT: normocephalic, atraumatic, anicteric, mucous membranes moist, PERRL, EOMI, pharynx normal, supple, no JVD Respiratory/Chest: chest wall non-tender, lungs clear, normal breath sounds, no respiratory distress, no accessory muscle use Cardiovascular: normal peripheral pulses, normal rate, regular rhythm, no gallop/murmur, no JVD Abdomen: normal bowel sounds, soft, non tender, no organomegaly, non distended , no mass, no scars Extremities: no cyanosis, no clubbing Skin: no rash, no lesions, no ulcers Neurologic/Psychiatric: alert, responsive Lymphatic: no neck adenopathy, no groin adenopathy Musculoskeletal: normal muscle bulk, no effusion Microbiology Date/Time Source Procedure Growth Status 09/20/18 01:30 Stool Clostridium difficile Toxin Assay - Final Complete 09/19/18 15:27 Urine,Clean Catch Urine Culture - Preliminary NO GROWTH AFTER 24 HOURS Resulted 09/19/18 19:30 Rectum Received Laboratory Tests Test 09/20/18 16:40 09/20/18 21:00 09/21/18 05:50 Rapid Plasma Reagin Reactive (Non Reactive) H Rapid Plasma Reagin Confirmation 1:8 (NonRea<1:1) H Entamoeba histolytica Antibody Pending Hepatitis B Surface Antigen Negative (Negative) Hepatitis B Surface Antibody <3.1 mIU/mL (Immunity>9.9) Hepatitis C Antibody <0.1 s/co ratio HIV-1 RNA (PCR) log10 Value Pending HIV-1 RNA Ultraquantitative (PCR) Pending Stool Occult Blood Pending Giardia Antigen Pending White Blood Count Pending Red Blood Count 3.54 M/UL (4.70-6.10) L Hemoglobin 9.6 G/DL (14.2-18.0) L Hematocrit 29.1 % (42.0-52.0) L Mean Corpuscular Volume 82 FL (80-99) Mean Corpuscular Hemoglobin 27.1 PG (27.0-31.0) Mean Corpuscular Hemoglobin Concent 32.9 G/DL (32.0-36.0) Red Cell Distribution Width 12.2 % (11.6-14.8) Platelet Count 351 K/UL (150-450) Mean Platelet Volume 6.3 FL (6.5-10.1) L Neutrophils (%) (Auto) 58.4 % (45.0-75.0) Lymphocytes (%) (Auto) 33.1 % (20.0-45.0) Monocytes (%) (Auto) 5.2 % (1.0-10.0) Eosinophils (%) (Auto) 2.3 % (0.0-3.0) Basophils (%) (Auto) 1.1 % (0.0-2.0) Lymphocytes Pending Sodium Level 140 MMOL/L (136-145) Potassium Level 3.2 MMOL/L (3.5-5.1) L Chloride Level 105 MMOL/L (98-107) Carbon Dioxide Level 26 MMOL/L (21-32) Anion Gap 9 mmol/L (5-15) Blood Urea Nitrogen 7 mg/dL (7-18) Creatinine 1.0 MG/DL (0.55-1.30) Estimat Glomerular Filtration Rate > 60 mL/min (>60) Glucose Level 88 MG/DL (74-106) Uric Acid 4.7 MG/DL (2.6-7.2) Calcium Level 7.9 MG/DL (8.5-10.1) L Phosphorus Level 2.5 MG/DL (2.5-4.9) Magnesium Level 1.1 MG/DL (1.8-2.4) L Iron Level 36 ug/dL (50-175) L Total Iron Binding Capacity 126 ug/dL (250-450) L Percent Iron Saturation 29 % (15-50) Unsaturated Iron Binding 90 ug/dL (112-346) L Ferritin 527 NG/ML (8-388) H Total Bilirubin 0.1 MG/DL (0.2-1.0) L Gamma Glutamyl Transpeptidase 14 U/L (5-85) Aspartate Amino Transf (AST/SGOT) 16 U/L (15-37) Alanine Aminotransferase (ALT/SGPT) 16 U/L (12-78) Alkaline Phosphatase 97 U/L (46-116) Lactate Dehydrogenase 207 U/L (81-234) C-Reactive Protein, Quantitative 10.6 mg/dL (0.00-0.90) H Pro-B-Type Natriuretic Peptide 98 pg/mL (0-125) Total Protein 7.6 G/DL (6.4-8.2) Albumin 1.8 G/DL (3.4-5.0) L Globulin 5.8 g/dL Albumin/Globulin Ratio 0.3 (1.0-2.7) L Vitamin B12 Level 1102 PG/ML (193-986) H Folate 4.2 NG/ML (8.6-58.9) L Free Thyroxine 1.14 NG/DL (0.76-1.46) Percent CD3 Cells Pending Absolute CD3 Count Pending Percent CD4 Cells Pending Absolute CD4 Count Pending T-Lymphocyte CD4/CD8 Ratio Pending Percent CD8 Cells Pending Absolute CD8 Count Pending Current Medications Medications (Trade) Dose Ordered Sig/Pteer Route PRN Reason Start Time Stop Time Status Last Admin Dose Admin Acetaminophen (Tylenol) 650 mg Q4H PRN ORAL Mild Pain/Temp > 100.5 09/20/18 08:30 10/20/18 08:29 Ceftriaxone Sodium 1 gm/ Dextrose 55 ml @ 110 mls/hr Q24H IVPB 09/20/18 09:00 09/27/18 08:59 09/21/18 09:28 Dextrose/ Electrolytes 1,000 ml @ 75 mls/hr [id number] IV 09/20/18 14:00 10/20/18 13:59 09/21/18 13:12 Folic Acid (Folate) 5 mg DAILY ORAL 09/21/18 13:45 10/21/18 13:44 09/21/18 13:53 Loperamide HCl (Imodium) 2 mg Q6H PRN NG Diarrhea 09/20/18 10:45 10/20/18 10:44 09/21/18 15:15 Magnesium Sulfate 100 ml @ 100 mls/hr Q1H IVPB 09/21/18 13:30 09/21/18 19:29 09/21/18 15:10 Metronidazole (Flagyl) 500 mg Q8HR ORAL 09/20/18 16:45 09/27/18 16:44 09/21/18 13:12 Morphine Sulfate (Morphine Sulfate) 1 mg EVERY 6 HOURS PRN IVP Severe Breakthru Pain (>7) 09/20/18 00:45 09/27/18 00:44 09/21/18 15:15 Non-Formulary Medication (Non-Formulary Med) 1 ea DAILY ORAL 09/20/18 09:00 10/20/18 08:59 UNV Ondansetron HCl (Zofran) 4 mg EVERY 4 HOURS PRN IVP Nausea & Vomiting 09/20/18 00:45 10/20/18 00:44 Pantoprazole (Protonix) 40 mg EVERY 12 HOURS ORAL 09/20/18 21:00 10/20/18 20:59 09/21/18 09:28 Potassium Chloride (K-Dur) 40 meq BID ORAL 09/21/18 18:00 10/20/18 18:33 Spironolactone (Aldactone) 25 mg DAILY ORAL 09/21/18 10:00 10/21/18 09:59 09/21/18 09:46 Diana Alexander M.D. Sep 21, 2018 15:45
[2018-09-21 16:00] VITALS: BP 125/80
--- NOTE | 2018-09-21 17:55 | NUR ---
NURSE NOTES: Dr UGALDE visited pt and he is aware pt still has diarrhea 4 times during my shift, all orders noted and carried out. will continue to monitor.
--- NOTE | 2018-09-21 18:00 | NUR ---
NURSE NOTES: Dr garcia visited pt and stated to call Dr lovelace to visit pt and explained to him why he still have diarrhea. called Dr lovelace, left massage. will continue to monitor.
[2018-09-21] MEDS: Lactobacillus-GG tablet ORAL SCH (18:15)
--- NOTE | 2018-09-21 19:05 | NUR ---
HAND-OFF: Report given to ZENAIDA MATHIAS. RN aware to F/U with non formulary med with pt and Dr lovelace.
--- NOTE | 2018-09-21 19:14 | Cardiology Report ---
APPROVED REPORT EKG Measurement Heart [id number] Normal sinus rhythm Normal ECG
--- NOTE | 2018-09-21 19:34 | NUR ---
NURSE NOTES: Received patient awake in bed, able to verbalize needs, no c/o pain at this time, no s/s of acute distress. IV site asymptomatic, dressing dry and intact. Safety and fall precautions applied. Patient still has diarrhea, c. dif negative.
[2018-09-21 20:00] VITALS: BP 117/79
--- NOTE | 2018-09-21 22:15 | Consultation ---
DATE OF CONSULTATION: 09/20/2018 INFECTIOUS DISEASE CONSULTATION CONSULTING PHYSICIAN: Diana Alexander M.D. REQUESTING PHYSICIAN: Miguel Ángel Fitch M.D. REASON FOR CONSULTATION: HIV poorly controlled with diarrhea for 4 weeks, rule out infectious etiology. HISTORY OF PRESENT ILLNESS: The patient is a 32 years old male with history of HIV diagnosed in 2003, who has been on multiple regimen of HIV medication since then, latest one was Stribild, then he was switched to Genvoya when he was in [facility] and was released on 07/14/2017. The patient took Genvoya for almost a year while he was in [facility], but he stopped taking it since he got released in 06/2017. Since then, he has been doing drugs on and off mainly meth, smoking first and injection later. The patient has been off Genvoya for almost a year. He was infected with syphilis almost 2 months ago and he was treated with 3 different shots of penicillin in the buttock for syphilis. The patient developed diarrhea over the last four weeks, watery bowel movement almost 8 to 9 bowel movements per day. No mucus, no blood. He noticed some weight loss. No fever or chills, no night sweats. So, he presented to the emergency room for further evaluation and management. The patient had a temperature of 98.4 with a pulse of 92, saturating 99% on room air. The patient was found to be hypokalemic with renal failure. So, he was admitted to the hospital, started on ceftriaxone empirically by the admitting physician and Infectious Disease consultation was requested for antibiotics treatment and further management. REVIEW OF SYSTEMS: A 14-point of systems reviewed, all negative apart from the one I mentioned above in my history and physical. PAST MEDICAL HISTORY: Significant for HIV, noncompliance, low CD4 count, drug abuse mainly meth, and syphilis, which he was treated for recently. PAST SURGICAL HISTORY: Negative. FAMILY HISTORY: Noncontributory. SOCIAL HISTORY: The patient is single, lives with boyfriend. Used drugs, smoking initially and he has been injecting lately. Denied alcohol or tobacco. Unemployed. ALLERGIES: No known drug allergy. MEDICATIONS: Recently, he was taking Genvoya. The patient was started on ceftriaxone by the admitting physician and Imodium by GI. PHYSICAL EXAMINATION: VITAL SIGNS: Temperature 98.3, pulse 88, respirations 18, blood pressure 124/85, and saturation 100% on room air. GENERAL: A young male, lying in bed, awake, alert, not in acute distress. HEENT: Normocephalic and atraumatic. Pupils are reactive to light equally. Moist oral mucosa. No exudate or thrush. NECK: Supple. No lymphadenopathy. CARDIOVASCULAR: Regular rate and rhythm. No murmur or gallop. LUNGS: Clear bilaterally. No wheezing. No rhonchi. ABDOMEN: Soft, nontender, and nondistended. Normal bowel sounds. No hepatosplenomegaly. No ascites. EXTREMITIES: No edema or cyanosis. SKIN: No rash or hives. GENITOURINARY: Normal genitalia. No ulcers. No warts. LABORATORY AND DIAGNOSTIC DATA: Labs showed white count of 3.9, hemoglobin of 9.7, and platelet count of 339. BUN of 7, creatinine of 1. AST of 16, ALT of 16. Urinalysis showed +1 leukocyte esterase, wbc's 10 to 15, moderate mucus, moderate transitional epithelial cells, and few bacteria. Microbiology, urine culture so far negative. C. difficile toxin is negative. Imaging, abdominal and pelvis CT scan showed no acute findings appreciated. ASSESSMENT AND RECOMMENDATION: 1. Human immunodeficiency virus poorly compliant with medications. The patient stopped taking Genvoya since he was released from [facility] in 06/2017. The patient was advised to restart Genvoya as soon as possible, which he will bring from home as per his report. We will screen the patient for syphilis and hepatitis. We will order CD4 count and viral load to evaluate his stage. The patient will need to follow up with his HIV provider as an outpatient and [facility], which he confirmed to do once he gets released from the hospital. 2. Diarrhea, rule out infectious etiology. We will order stool culture, ova parasite, Giardia and Entamoeba serology. Start the patient on metronidazole and continue ceftriaxone empiric coverage. 3. Anemia. We will screen for stool Hemoccult. Gastrointestinal is following. May need colonoscopy for further evaluation of his diarrhea too. 4. Noncompliance. The patient was advised to follow up with his HIV provider and to resume his HIV medications to prevent treatment failure and resistance for the current regimen he is on. The patient aware of the risk and benefit. Thank you for the consult. Infectious Disease will continue to follow. Diana Alexander M.D. DR: YANE JOB#: [id number] CC:
--- NOTE | 2018-09-21 22:30 | Progress Note ---
DATE: 09/21/2018 SUBJECTIVE: This is a 32-year-old male, came with diarrhea, abdominal pain, hypokalemia. The patient is improving but is still having diarrhea. White count 3.7, hemoglobin 9.6, hematocrit 29, platelets are 351. Potassium is 3.2, we will replace the potassium this morning. ASSESSMENT: 1. Diarrhea. 2. Hypokalemia. 3. HIV. PLAN: 1. ID is on consult. 2. cultures were negative. 3. C. difficile was negative. 4. We will discuss with ID. 5. GI is on case. Elian Fitch M.D. DR: Omid JOB#: [id number] CC:
[2018-09-22] VITALS: BP 107/75
[2018-09-22 04:00] VITALS: BP 119/74
[2018-09-22] MEDS: D5NS w/KCl 40mEq 1000ml 1,000 ML IV SCH ×2 (04:55→19:20)
[2018-09-22] MEDS: metroNIDAZOLE 500mg tab ORAL SCH ×3 (05:24→21:27)
--- NOTE | 2018-09-22 06:11 | NUR ---
NURSE NOTES: I smelled marijuana smoke in patient room's bathroom while changing IV bag. Called security to ask patient if he was smoking since I had not witnessed it. Patient surrendered bag of marijuana with blunt wraps and wet cotton feeder. Nurse pigment making supervisor talked to patient along with security. Patient verbalized understanding that we are in a non-smoking facility. Put confiscated items in security bag, tag in chart, noted in belonging list, nurse pigment making supervisor witnessed.
--- NOTE | 2018-09-22 07:00 | NUR ---
NURSE NOTES: RN received pt alert and oriented in bed. No s/s of acute distress, no pain. IV patent, dressing dry and intact. Bed in low locked position, call light within reach. Will continue plan of care.
[2018-09-22 07:06] LABS: ALANINE AMINOTRANSFERASE 15 U/L (12-78); ALBUMIN 1.7 G/DL (3.4-5.0); ALBUMIN/GLOBULIN RATIO 0.3 (1.0-2.7); ALKALINE PHOSPHATASE 100 U/L (46-116); ANION GAP 10 mmol/L (5-15); ASPARTATE AMINO TRANSFERASE 15 U/L (15-37); BILIRUBIN,TOTAL 0.1 MG/DL (0.2-1.0); BLOOD UREA NITROGEN 7 mg/dL (7-18); CALCIUM 7.7 MG/DL (8.5-10.1); CARBON DIOXIDE 23 MMOL/L (21-32); CHLORIDE 110 MMOL/L (98-107); CREATININE 0.9 MG/DL (0.55-1.30); HEMATOCRIT 28.4 % (42.0-52.0); HEMOGLOBIN 9.5 G/DL (14.2-18.0); MEAN CORPUSCULAR VOLUME 83 FL (80-99); PHOSPHORUS 1.8 MG/DL (2.5-4.9); PLATELET COUNT 356 K/UL (150-450); POTASSIUM 3.8 MMOL/L (3.5-5.1); RED BLOOD COUNT 3.44 M/UL (4.70-6.10); RED CELL DISTRIBUTION WIDTH 12.4 % (11.6-14.8); SODIUM 143 MMOL/L (136-145); WHITE BLOOD COUNT 3.3 K/UL (4.8-10.8)
--- NOTE | 2018-09-22 07:20 | NUR ---
HAND-OFF: Report given to ZENAIDA Henry.
--- NOTE | 2018-09-22 07:57 | NUR ---
NURSE NOTES: Pt pos for VRE rectum. RN notified Dr. Alexander. Awaiting call back.
[2018-09-22 08:00] VITALS: BP 120/79
[2018-09-22] MEDS: Lactobacillus-GG tablet ORAL SCH ×3 (09:14→18:31)
[2018-09-22] MEDS: Spironolactone 25mg tab ORAL SCH (09:16)
--- NOTE | 2018-09-22 09:47 | General Progress Note ---
Assessment/Plan Problem List: (1) Anemia ICD Codes: D64.9 - Anemia, unspecified SNOMED: 890180189 (2) HIV (human immunodeficiency virus infection) ICD Codes: B20 - Human immunodeficiency virus [HIV] disease SNOMED: 71596100 (3) Diarrhea ICD Codes: R19.7 - Diarrhea, unspecified SNOMED: 61709874 Qualifiers: Qualified Codes: R19.7 - Diarrhea, unspecified (4) Hypokalemia ICD Codes: E87.6 - Hypokalemia SNOMED: 50463438 (5) Noncompliance ICD Codes: Z91.19 - Patient's noncompliance with other medical treatment and regimen SNOMED: 1612758 Assessment/Plan neg C.diff imodium prn prn fu CD4 count and will order more stool studies if low CD4 count replace K replace folate replace mag and phos CT reviewed>>> no acute finding +/- colonoscopy>>.will fu Subjective ROS Limited/Unobtainable: Yes Allergies: Coded Allergies: No Known Allergies (Unverified , 01/25/18) Subjective diarrhea improving Objective Last 24 Hour Vital Signs Date Time Temp Pulse Resp B/P (MAP) Pulse Ox O2 Delivery O2 Flow Rate FiO2 09/22/18 09:00 Room Air 09/22/18 08:00 97.3 86 20 120/79 (93) 100 09/22/18 04:00 97.3 68 16 119/74 (89) 100 09/22/18 00:00 98.0 77 16 107/75 (86) 99 09/21/18 21:16 Room Air 09/21/18 20:00 97.9 85 18 117/79 (92) 99 09/21/18 16:00 97.8 81 19 125/80 (95) 99 09/21/18 15:45 97.3 09/21/18 12:00 97.3 86 20 132/80 (97) 100 Intake and Output 09/21/18 09/22/18 18:59 06:59 Intake Total 2280 ml 1600 ml Balance 2280 ml 1600 ml Intake Oral 1000 ml 750 ml IV Total 1280 ml 850 ml # Voids 3 4 # Bowel Movements 5 1 Laboratory Tests 09/22/18 05:24: White Blood Count 3.3L, Red Blood Count 3.44L, Hemoglobin 9.5L, Hematocrit 28.4L , Mean Corpuscular Volume 83, Mean Corpuscular Hemoglobin 27.6, Mean Corpuscular Hemoglobin Concent 33.4, Red Cell Distribution Width 12.4, Platelet Count 356, Mean Platelet Volume 6.0L, Neutrophils (%) (Auto) , Lymphocytes (%) ( Auto) , Monocytes (%) (Auto) , Eosinophils (%) (Auto) , Basophils (%) (Auto) , Differential Total Cells Counted 100, Neutrophils % (Manual) 57, Lymphocytes % ( Manual) 31, Monocytes % (Manual) 2, Eosinophils % (Manual) 4H, Basophils % ( Manual) 0, Band Neutrophils 6, Platelet Estimate Adequate, Platelet Morphology Normal, Ovalocytes 1+, Rosemarie Cells 1+, Acanthocytes 1+, Sodium Level 143, Potassium Level 3.8, Chloride Level 110H, Carbon Dioxide Level 23, Anion Gap 10 , Blood Urea Nitrogen 7, Creatinine 0.9, Estimat Glomerular Filtration Rate > 60 , Glucose Level 104, Uric Acid 4.0, Calcium Level 7.7L, Phosphorus Level 1.8L, Magnesium Level 1.7L, Total Bilirubin 0.1L, Aspartate Amino Transf (AST/SGOT) 15 , Alanine Aminotransferase (ALT/SGPT) 15, Alkaline Phosphatase 100, Total Protein 7.2, Albumin 1.7L, Globulin 5.5, Albumin/Globulin Ratio 0.3L Height (Feet): 5 Height (Inches): 10.00 Weight (Pounds): 149 General Appearance: alert EENT: normal ENT inspection Neck: supple Cardiovascular: normal rate Respiratory/Chest: lungs clear Abdomen: normal bowel sounds, non tender, soft Extremities: non-tender Francis Angel MD Sep 22, 2018 09:47
[2018-09-22] MEDS ORDERED: Potassium Phosphate 30 MM in NS 275 ML IV ONE (10:00)
[2018-09-22] MEDS ORDERED: Spironolactone 25mg tab ORAL SCH (10:00)
[2018-09-22] MEDS: cefTRIAXone 1 GM in D5W 55 ML IVPB SCH (10:23)
[2018-09-22] MEDS: Morphine Sulfate 2mg/ml Inj(IV/IM USE ONLY) IVP PRN ×2 (10:30→19:56)
--- NOTE | 2018-09-22 10:41 | NUR ---
ALL CLINICALS HAVE BEEN FAXED TO: DENNY HORVATH: HIRAM P- [phone] X [facility] F- [phone] PLEASE FAX THE REVIEW /CLINICAL PT BELONGS TO [facility]
[2018-09-22] MEDS ORDERED: Sodium Phosphate 15 MM in NS 275 ML IVPB ONE (11:00)
[2018-09-22 12:00] VITALS: BP 114/80
--- NOTE | 2018-09-22 12:51 | NUR ---
NURSE NOTES: Charting note: Duplicate entry in chart completing IV Infusion spreadsheet for Mag Sulfate at 1014.
--- NOTE | 2018-09-22 13:42 | Infectious Diseases Prog Note ---
Assessment/Plan Problems: (1) HIV (human immunodeficiency virus infection) Assessment & Plan: poorly controled with CD4 of 68 , due to noncompliant with meds, He stopped taking genvoya last year , was advised to resume taking genvoya , and to follow up with HIV provider at [facility] , screen for syphilis with RPR showed titer of 1:8 which due to recent syphilis he had and was treated for , and his hepatitis screening is negative , await viral load . continue genvoya , add Bactrim for PJP prophylaxis (2) Diarrhea Assessment & Plan: improving, await stool culture, ova/parasites, Giardia and entamoeba serology , continue metronidazole , and bactrim . recommend colonoscopy for further eval (3) Anemia Assessment & Plan: screening for stool Hemoccult is pending , GI is following may need colonoscopy for further eval (4) Noncompliance Assessment & Plan: patient was adviced to take his HIV meds and to follow up with HIV provider at [facility] which he confirmed to do upon discharge (5) Drug abuse Assessment & Plan: recommend rehabilitation and counseling Subjective Constitutional: Reports: no symptoms HEENT: Reports: no symptoms Respiratory: Reports: no symptoms Breasts: Reports: no symptoms Cardiovascular: Reports: no symptoms Gastrointestinal/Abdominal: Reports: diarrhea, bloating Genitourinary: Reports: no symptoms Neurologic: Reports: no symptoms Psychiatric: Reports: no symptoms Skin: Reports: no symptoms Endocrine: Reports: no symptoms Hematologic: Reports: no symptoms Musculoskeletal: Reports: no symptoms Allergies: Coded Allergies: No Known Allergies (Unverified , 01/25/18) Objective Vital Signs Last 24 Hour Vital Signs Date Time Temp Pulse Resp B/P (MAP) Pulse Ox O2 Delivery O2 Flow Rate FiO2 09/22/18 12:00 97.8 89 20 114/80 (91) 100 09/22/18 11:00 97.3 09/22/18 09:00 Room Air 09/22/18 08:00 97.3 86 20 120/79 (93) 100 09/22/18 04:00 97.3 68 16 119/74 (89) 100 09/22/18 00:00 98.0 77 16 107/75 (86) 99 09/21/18 21:16 Room Air 09/21/18 20:00 97.9 85 18 117/79 (92) 99 09/21/18 16:00 97.8 81 19 125/80 (95) 99 Height (Feet): 5 Height (Inches): 10.00 Weight (Pounds): 149 General Appearance: WD/WN, no acute distress HEENT: normocephalic, atraumatic, anicteric, mucous membranes moist, PERRL, EOMI, pharynx normal, supple, no JVD Respiratory/Chest: chest wall non-tender, lungs clear, normal breath sounds, no respiratory distress, no accessory muscle use Cardiovascular: normal peripheral pulses, normal rate, regular rhythm, no gallop/murmur, no JVD Abdomen: normal bowel sounds, soft, non tender, no organomegaly, non distended , no mass, no scars Extremities: no cyanosis, no clubbing Skin: no rash, no lesions, no ulcers Neurologic/Psychiatric: poultry 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 Complete 09/20/18 01:30 Stool Clostridium difficile Toxin Assay - Final Complete 09/19/18 15:27 Urine,Clean Catch Urine Culture - Final NO GROWTH AFTER 48 HOURS Complete 09/19/18 19:30 Rectum - Final NO CARBAPENEM-RESISTANT ENTEROBACTERI... Complete 09/19/18 19:30 Rectum VRE Culture - Final Enterococcus Faecalis - Vre Complete Laboratory Tests Test 09/22/18 05:24 White Blood Count 3.3 K/UL (4.8-10.8) L Red Blood Count 3.44 M/UL (4.70-6.10) L Hemoglobin 9.5 G/DL (14.2-18.0) L Hematocrit 28.4 % (42.0-52.0) L Mean Corpuscular Volume 83 FL (80-99) Mean Corpuscular Hemoglobin 27.6 PG (27.0-31.0) Mean Corpuscular Hemoglobin Concent 33.4 G/DL (32.0-36.0) Red Cell Distribution Width 12.4 % (11.6-14.8) Platelet Count 356 K/UL (150-450) Mean Platelet Volume 6.0 FL (6.5-10.1) L Neutrophils (%) (Auto) % (45.0-75.0) Lymphocytes (%) (Auto) % (20.0-45.0) Monocytes (%) (Auto) % (1.0-10.0) Eosinophils (%) (Auto) % (0.0-3.0) Basophils (%) (Auto) % (0.0-2.0) Differential Total Cells Counted 100 Neutrophils % (Manual) 57 % (45-75) Lymphocytes % (Manual) 31 % (20-45) Monocytes % (Manual) 2 % (1-10) Eosinophils % (Manual) 4 % (0-3) H Basophils % (Manual) 0 % (0-2) Band Neutrophils 6 % (0-8) Platelet Estimate Adequate Platelet Morphology Normal Ovalocytes 1+ Criders Cells 1+ Acanthocytes 1+ Sodium Level 143 MMOL/L (136-145) Potassium Level 3.8 MMOL/L (3.5-5.1) Chloride Level 110 MMOL/L (98-107) H Carbon Dioxide Level 23 MMOL/L (21-32) Anion Gap 10 mmol/L (5-15) Blood Urea Nitrogen 7 mg/dL (7-18) Creatinine 0.9 MG/DL (0.55-1.30) Estimat Glomerular Filtration Rate > 60 mL/min (>60) Glucose Level 104 MG/DL (74-106) Uric Acid 4.0 MG/DL (2.6-7.2) Calcium Level 7.7 MG/DL (8.5-10.1) L Phosphorus Level 1.8 MG/DL (2.5-4.9) L Magnesium Level 1.7 MG/DL (1.8-2.4) L Total Bilirubin 0.1 MG/DL (0.2-1.0) L Aspartate Amino Transf (AST/SGOT) 15 U/L (15-37) Alanine Aminotransferase (ALT/SGPT) 15 U/L (12-78) Alkaline Phosphatase 100 U/L (46-116) Total Protein 7.2 G/DL (6.4-8.2) Albumin 1.7 G/DL (3.4-5.0) L Globulin 5.5 g/dL Albumin/Globulin Ratio 0.3 (1.0-2.7) L Current Medications Medications (Trade) Dose Ordered Sig/Peter Route PRN Reason Start Time Stop Time Status Last Admin Dose Admin Acetaminophen (Tylenol) 650 mg Q4H PRN ORAL Mild Pain/Temp > 100.5 09/20/18 08:30 10/20/18 08:29 Ceftriaxone Sodium 1 gm/ Dextrose 55 ml @ 110 mls/hr Q24H IVPB 09/20/18 09:00 09/27/18 08:59 09/22/18 10:23 Dextrose/ Electrolytes 1,000 ml @ 75 mls/hr [id number] IV 09/20/18 14:00 10/20/18 13:59 09/22/18 04:55 Folic Acid (Folate) 5 mg DAILY ORAL 09/21/18 13:45 10/21/18 13:44 09/22/18 09:16 Lactobacillus Acidophilus (Culturelle) 1 tab THREE TIMES A DAY ORAL 09/21/18 18:00 10/21/18 17:59 09/22/18 09:14 Loperamide HCl (Imodium) 2 mg Q6H PRN NG Diarrhea 09/20/18 10:45 10/20/18 10:44 09/21/18 15:15 Metronidazole (Flagyl) 500 mg Q8HR ORAL 09/20/18 16:45 09/27/18 16:44 09/22/18 05:24 Morphine Sulfate (Morphine Sulfate) 1 mg EVERY 6 HOURS PRN IVP Severe Breakthru Pain (>7) 09/20/18 00:45 09/27/18 00:44 09/22/18 10:30 Non-Formulary Medication (Non-Formulary Med) 1 ea DAILY ORAL 09/20/18 09:00 10/20/18 08:59 UNV Ondansetron HCl (Zofran) 4 mg EVERY 4 HOURS PRN IVP Nausea & Vomiting 09/20/18 00:45 10/20/18 00:44 Pantoprazole (Protonix) 40 mg EVERY 12 HOURS ORAL 09/20/18 21:00 10/20/18 20:59 09/22/18 09:16 Potassium Phosphate 30 mm/ Sodium Chloride 285 ml @ 47.5 mls/hr ONCE ONCE IV 09/22/18 10:00 09/22/18 15:59 Potassium Chloride (K-Dur) 40 meq BID ORAL 09/21/18 18:00 10/20/18 18:33 09/22/18 09:16 Spironolactone (Aldactone) 25 mg DAILY ORAL 09/21/18 10:00 10/21/18 09:59 09/22/18 09:16 Diana Alexander M.D. Sep 22, 2018 13:42
--- NOTE | 2018-09-22 13:45 | NUR ---
NURSE NOTES: Pt stated IV site painful, requested removal of IV and to start new IV. Pt also requested shower. RN informed pt of medication schedule and IV medications remaining to be infused. Pt verbalized understanding and requested to delay medications till after shower. Pt had toiletry bag. RN found multiple medications in bag, removed medications and placed in pharmacy bag, including medication for Genvoya. RN Informed pt of policy for pharmacy to hold on to medications and that pt would get medications back at discharge. RN reviewed and verified with pt medications being delivered to pharmacy. Pt verbalized understanding.
--- NOTE | 2018-09-22 15:46 | Nephrology Progress Note ---
Assessment/Plan Problem List: (1) Hypokalemia (2) Anemia (3) Diarrhea (4) HIV (human immunodeficiency virus infection) Assessment HypoKalemia improved Low mag Diarrhea Anemia HIV Noncompliant with meds low folate Plan KCl IV and PO Aldacton IV Mag Per GI and ID monitor lytes folic acid Subjective ROS Limited/Unobtainable: No Objective Objective Last 24 Hour Vital Signs Date Time Temp Pulse Resp B/P (MAP) Pulse Ox O2 Delivery O2 Flow Rate FiO2 09/22/18 12:00 97.8 89 20 114/80 (91) 100 09/22/18 11:00 97.3 09/22/18 09:00 Room Air 09/22/18 08:00 97.3 86 20 120/79 (93) 100 09/22/18 04:00 97.3 68 16 119/74 (89) 100 09/22/18 00:00 98.0 77 16 107/75 (86) 99 09/21/18 21:16 Room Air 09/21/18 20:00 97.9 85 18 117/79 (92) 99 09/21/18 16:00 97.8 81 19 125/80 (95) 99 Intake and Output 09/21/18 09/22/18 19:00 07:00 Intake Total 2205 ml 1600 ml Balance 2205 ml 1600 ml Intake Oral 1000 ml 750 ml IV Total 1205 ml 850 ml # Voids 3 4 # Bowel Movements 5 1 Laboratory Tests 09/22/18 05:24: White Blood Count 3.3L, Red Blood Count 3.44L, Hemoglobin 9.5L, Hematocrit 28.4L , Mean Corpuscular Volume 83, Mean Corpuscular Hemoglobin 27.6, Mean Corpuscular Hemoglobin Concent 33.4, Red Cell Distribution Width 12.4, Platelet Count 356, Mean Platelet Volume 6.0L, Neutrophils (%) (Auto) , Lymphocytes (%) ( Auto) , Monocytes (%) (Auto) , Eosinophils (%) (Auto) , Basophils (%) (Auto) , Differential Total Cells Counted 100, Neutrophils % (Manual) 57, Lymphocytes % ( Manual) 31, Monocytes % (Manual) 2, Eosinophils % (Manual) 4H, Basophils % ( Manual) 0, Band Neutrophils 6, Platelet Estimate Adequate, Platelet Morphology Normal, Ovalocytes 1+, Cade Cells 1+, Acanthocytes 1+, Sodium Level 143, Potassium Level 3.8, Chloride Level 110H, Carbon Dioxide Level 23, Anion Gap 10 , Blood Urea Nitrogen 7, Creatinine 0.9, Estimat Glomerular Filtration Rate > 60 , Glucose Level 104, Uric Acid 4.0, Calcium Level 7.7L, Phosphorus Level 1.8L, Magnesium Level 1.7L, Total Bilirubin 0.1L, Aspartate Amino Transf (AST/SGOT) 15 , Alanine Aminotransferase (ALT/SGPT) 15, Alkaline Phosphatase 100, Total Protein 7.2, Albumin 1.7L, Globulin 5.5, Albumin/Globulin Ratio 0.3L Height (Feet): 5 Height (Inches): 10.00 Weight (Pounds): 149 General Appearance: no apparent distress Cardiovascular: tachycardia Respiratory/Chest: lungs clear Abdomen: soft Objective no change Matrell Cha MD Sep 22, 2018 15:46
--- NOTE | 2018-09-22 15:58 | NUR ---
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 ANEMIA VS: BP 107/75, P 86, T 97.3, RR 16, SpO2 100 WBC 3.3, RBC 3.44, Hct 28.4, Hgb 9.5, Mag. 1.7, Ca 7.7, PHOS. 1.8 IS: POTASSIUM [id number] IVPB FOLIC ACID 5mg MAGNESIUM SULFATE 100ml IVPB ALDACTONE 25mg PROTONIX 40mg K-DUR 40meq FLAGYL 500mg D5/ ELECTROLYTES x1L IV CEFTRIAXONE 55ml IVPB MORPHINE 1mg MED/SURG STATUS
[2018-09-22 16:00] VITALS: BP 118/66
[2018-09-22] MEDS: GENVOYA ORAL SCH (16:12)
[2018-09-22] MEDS ORDERED: Magnesium Oxide 400mg tab ORAL SCH ×2 (17:23→18:42)
--- NOTE | 2018-09-22 19:20 | NUR ---
HAND-OFF: Report given to ZENAIDA Loyd.
--- NOTE | 2018-09-22 19:25 | NUR ---
NURSE NOTES: Received patient awake in bed, able to verbalize needs, no c/o pain at this time, no s/s of acute distress. IV site asymptomatic, dressing dry and intact. Safety and fall precautions applied. Patient still has diarrhea, c. dif negative. DC plan for tomorrow noted.
[2018-09-22 20:00] VITALS: BP 113/76
--- NOTE | 2018-09-22 22:15 | Progress Note ---
DATE: 09/22/2018 SUBJECTIVE: This is an elderly 32-year-old male, currently doing better. Diarrhea is resolved. OBJECTIVE: VITAL SIGNS: Blood pressure 118/60, no fever. CHEST: Bilaterally clear. CARDIOVASCULAR: Regular rhythm. ABDOMEN: Soft. EXTREMITIES: CCE. LABORATORY DATA: White counts 3.3. Chemistry panel, potassium 3.8. Albumin is 1.7. ASSESSMENT: 1. HIV. 2. Diarrhea. 3. Hypokalemia, resolved. PLAN: 1. Continue current treatment. 2. Discharge plan tomorrow. 3. ID consult. Elian Fitch M.D. DR: Omid JOB#: [id number] CC:
[2018-09-23] VITALS: BP 108/70
[2018-09-23 04:00] VITALS: BP 104/64
[2018-09-23] MEDS: metroNIDAZOLE 500mg tab ORAL SCH ×2 (05:37→14:00)
[2018-09-23] MEDS: D5NS w/KCl 40mEq 1000ml 1,000 ML IV SCH (05:38)
[2018-09-23 06:33] LABS: HEMATOCRIT 29.2 % (42.0-52.0); HEMOGLOBIN 9.5 G/DL (14.2-18.0); MEAN CORPUSCULAR VOLUME 83 FL (80-99); PLATELET COUNT 368 K/UL (150-450); RED BLOOD COUNT 3.51 M/UL (4.70-6.10); RED CELL DISTRIBUTION WIDTH 12.8 % (11.6-14.8); WHITE BLOOD COUNT 3.4 K/UL (4.8-10.8)
[2018-09-23 06:48] LABS: ANION GAP 10 mmol/L (5-15); BLOOD UREA NITROGEN 7 mg/dL (7-18); CALCIUM 7.9 MG/DL (8.5-10.1); CARBON DIOXIDE 23 MMOL/L (21-32); CHLORIDE 107 MMOL/L (98-107); CREATININE 0.9 MG/DL (0.55-1.30); POTASSIUM 4.7 MMOL/L (3.5-5.1); SODIUM 140 MMOL/L (136-145)
--- NOTE | 2018-09-23 07:10 | NUR ---
NURSE NOTES: RN received pt alert in bed eating breakfast. No SOB or acute distress. Bed in low, locked position, call light within reach. Will continue plan of care.
--- NOTE | 2018-09-23 07:11 | NUR ---
HAND-OFF: Report given to ZENAIDA Henry.
--- NOTE | 2018-09-23 07:22 | NUR ---
NURSE NOTES: Received patient from Zoë RN, patient resting in bed, no distress noted, bed is locked and in lowest position, call light within reach, will continue to monitor.
[2018-09-23 08:00] VITALS: BP 114/67
[2018-09-23] MEDS: Spironolactone 25mg tab ORAL SCH (08:13)
[2018-09-23] MEDS: GENVOYA ORAL SCH (08:13)
[2018-09-23] MEDS: Lactobacillus-GG tablet ORAL SCH ×2 (08:13→13:00)
[2018-09-23] MEDS ORDERED: Bactrim-DS 1 tab ORAL SCH (09:00)
[2018-09-23] MEDS ORDERED: POTASSIUM CHLO20 ME2 ORAL (11:54)
[2018-09-23] MEDS ORDERED: POTASSIUM CHLO10 ME3 ORAL (11:59)
[2018-09-23] MEDS ORDERED: LOMOTIL TABLET1 EACH ORAL ×2 (12:00→12:01)
--- NOTE | 2018-09-23 13:08 | General Progress Note ---
Assessment/Plan Problem List: (1) Anemia ICD Codes: D64.9 - Anemia, unspecified SNOMED: 688846539 (2) HIV (human immunodeficiency virus infection) ICD Codes: B20 - Human immunodeficiency virus [HIV] disease SNOMED: 15569016 (3) Diarrhea ICD Codes: R19.7 - Diarrhea, unspecified SNOMED: 46644107 Qualifiers: Qualified Codes: R19.7 - Diarrhea, unspecified (4) Hypokalemia ICD Codes: E87.6 - Hypokalemia SNOMED: 23034495 (5) Noncompliance ICD Codes: Z91.19 - Patient's noncompliance with other medical treatment and regimen SNOMED: 4406491 Assessment/Plan neg C.diff imodium prn fu ID replace K replace folate replace mag and phos CT reviewed>>> no acute finding colonoscopy>>> is being dc, patient to fu as out patient Subjective ROS Limited/Unobtainable: Yes Allergies: Coded Allergies: No Known Allergies (Unverified , 01/25/18) Subjective diarrhea improving Objective Last 24 Hour Vital Signs Date Time Temp Pulse Resp B/P (MAP) Pulse Ox O2 Delivery O2 Flow Rate FiO2 09/23/18 09:00 Room Air 09/23/18 08:00 97.9 82 18 114/67 (83) 98 09/23/18 04:00 97.7 86 18 104/64 (77) 98 09/23/18 00:00 98.4 86 18 108/70 (83) 100 09/22/18 21:53 Room Air 09/22/18 20:00 98.3 96 18 113/76 (88) 100 09/22/18 16:00 97.9 95 20 118/66 (83) 99 Intake and Output 09/22/18 09/23/18 18:59 06:59 Intake Total 1410 ml 1375 ml Balance 1410 ml 1375 ml Intake Oral 1000 ml 850 ml IV Total 410 ml 525 ml # Voids 4 3 # Bowel Movements 2 1 Laboratory Tests 09/23/18 05:00: White Blood Count 3.4L, Red Blood Count 3.51L, Hemoglobin 9.5L, Hematocrit 29.2L , Mean Corpuscular Volume 83, Mean Corpuscular Hemoglobin 27.0, Mean Corpuscular Hemoglobin Concent 32.5, Red Cell Distribution Width 12.8, Platelet Count 368, Mean Platelet Volume 5.7L, Neutrophils (%) (Auto) , Lymphocytes (%) ( Auto) , Monocytes (%) (Auto) , Eosinophils (%) (Auto) , Basophils (%) (Auto) , Differential Total Cells Counted 100, Neutrophils % (Manual) 60, Lymphocytes % ( Manual) 30, Monocytes % (Manual) 9, Eosinophils % (Manual) 1, Basophils % ( Manual) 0, Band Neutrophils 0, Platelet Estimate Adequate, Platelet Morphology Normal, Red Blood Cell Morphology Normal, Sodium Level 140, Potassium Level 4.7 , Chloride Level 107, Carbon Dioxide Level 23, Anion Gap 10, Blood Urea Nitrogen 7, Creatinine 0.9, Estimat Glomerular Filtration Rate > 60, Glucose Level 92, Calcium Level 7.9L Height (Feet): 5 Height (Inches): 10.00 Weight (Pounds): 149 General Appearance: alert EENT: normal ENT inspection Neck: supple Cardiovascular: normal rate Respiratory/Chest: decreased breath sounds Abdomen: normal bowel sounds, non tender, soft Extremities: non-tender Francis Angel MD Sep 23, 2018 13:08
--- NOTE | 2018-09-23 13:47 | Nephrology Progress Note ---
Assessment/Plan Problem List: (1) Hypokalemia (2) Anemia (3) Diarrhea (4) HIV (human immunodeficiency virus infection) Assessment HypoKalemia improved Low mag Diarrhea Anemia HIV Noncompliant with meds low folate Plan KCl IV and PO [place] IV Mag Per GI and ID monitor lytes folic acid Subjective ROS Limited/Unobtainable: No Constitutional: Reports: malaise, weakness Objective Objective Last 24 Hour Vital Signs Date Time Temp Pulse Resp B/P (MAP) Pulse Ox O2 Delivery O2 Flow Rate FiO2 09/23/18 09:00 Room Air 09/23/18 08:00 97.9 82 18 114/67 (83) 98 09/23/18 04:00 97.7 86 18 104/64 (77) 98 09/23/18 00:00 98.4 86 18 108/70 (83) 100 09/22/18 21:53 Room Air 09/22/18 20:00 98.3 96 18 113/76 (88) 100 09/22/18 16:00 97.9 95 20 118/66 (83) 99 Intake and Output 09/22/18 09/23/18 18:59 06:59 Intake Total 1410 ml 1375 ml Balance 1410 ml 1375 ml Intake Oral 1000 ml 850 ml IV Total 410 ml 525 ml # Voids 4 3 # Bowel Movements 2 1 Laboratory Tests 09/23/18 05:00: White Blood Count 3.4L, Red Blood Count 3.51L, Hemoglobin 9.5L, Hematocrit 29.2L , Mean Corpuscular Volume 83, Mean Corpuscular Hemoglobin 27.0, Mean Corpuscular Hemoglobin Concent 32.5, Red Cell Distribution Width 12.8, Platelet Count 368, Mean Platelet Volume 5.7L, Neutrophils (%) (Auto) , Lymphocytes (%) ( Auto) , Monocytes (%) (Auto) , Eosinophils (%) (Auto) , Basophils (%) (Auto) , Differential Total Cells Counted 100, Neutrophils % (Manual) 60, Lymphocytes % ( Manual) 30, Monocytes % (Manual) 9, Eosinophils % (Manual) 1, Basophils % ( Manual) 0, Band Neutrophils 0, Platelet Estimate Adequate, Platelet Morphology Normal, Red Blood Cell Morphology Normal, Sodium Level 140, Potassium Level 4.7 , Chloride Level 107, Carbon Dioxide Level 23, Anion Gap 10, Blood Urea Nitrogen 7, Creatinine 0.9, Estimat Glomerular Filtration Rate > 60, Glucose Level 92, Calcium Level 7.9L Height (Feet): 5 Height (Inches): 10.00 Weight (Pounds): 149 General Appearance: no apparent distress Objective no change Martell Cha MD Sep 23, 2018 13:47
--- NOTE | 2018-09-23 14:08 | NUR ---
*-* INSURANCE *-* ALL CLINICALS HAVE BEEN FAXED TO: DENNY HORVATH: HIRAM P- [phone] X [facility] F- [phone] PLEASE FAX THE REVIEW /CLINICAL PT BELONGS TO [facility]
--- NOTE | 2018-09-23 14:14 | NUR ---
NURSE NOTES: RN discharged pt with discharge packet and education regarding diarrhea, hypokalemia, and further educated pt on medication compliance for HIV. RN advised pt to continue home meds as prescribed and follow up with PCP. Pt verbalized understanding. IV and ID band removed. Personal belongings accounted for with pt. RN escorted pt in stable condition to taxi and provided pt with taxi voucher. Pt verbalized gratitude for care.
[2018-09-23] MEDS ORDERED: Tubing IV Secondary IV ONE (14:22)
[2018-09-23] MEDS ORDERED: 1/2 NS 1000ml IV ONE (14:22)
--- NOTE | 2018-09-23 23:15 | Progress Note ---
DATE: 09/23/2018 SUBJECTIVE: This is a young male who came to the Emergency Room for having generalized weakness and diarrhea. The patient was found to have hypokalemia. The patient was admitted to medical floor by replacing potassium and also was pneumonia, on antibiotics. The patient was clinically doing better. His diarrhea was resolving and discussed with ID. The patient also was replaced potassium. DISCHARGE DIAGNOSES: Diarrhea secondary to HIV. PLAN: We will continue Lomotil. Continue to increase p.o. fluid. We will add banana in diet. Follow up with ID. Elian Fitch M.D. DR: MINGO JOB#: [id number] CC:
[2018-09-25] MEDS ORDERED: BACTRIM DOUBLE S1 E1 ORAL (20:53)
--- NOTE | 2018-09-27 12:09 | Discharge Summary ---
Discharge Summary Discharge Summary _ DATE OF ADMISSION: 09/19/2018 DATE OF DISCHARGE: 09/23/2018 DISCHARGED BY: Dr. Elian Fitch CONSULTANTS: Dr. Martell Alexander BRIEF HOSPITAL COURSE: Patient is a 32-year-old -[place] male, who presented to the ED due to diarrhea. He has medical history significant for HIV for 10 years, however, currently not taking HIV medications. He complained of 2 weeks continuous nonbloody diarrhea with vomiting. He was recently hospitalized for the same issue. He has not followed up with his primary care physician. He had been intermittently taking his HIV medications. He denied any recent travel, no cough, no congestion, no fever or chills. He reported diffuse abdominal pain without radiation, rate of 7 out of 10 and pain was intermittent. He complains of generalized body ache and reported being lethargic. He complained of chest pain, however, denied shortness of breath, palpitations, hematuria, blood in the stool or in vomitus. He reported recent methamphetamine use but reported he stopped a week earlier. On evaluation at ED, vital signs were stable. Blood work showed WBC of 4.9, hemoglobin 11, hematocrit 33. Potassium was significantly low at 2.5. Sodium 137, chloride 97. CT of the abdomen and pelvis showed thickening of the colon and appendix was prominent measuring up to 7 mm. There was no free fluid, free air or loculated fluid collection. He was given potassium replacement. He was then admitted for hypokalemia and possible appendicitis. Stool studies were sent. Patient was C. difficile negative. He was given Imodium prn. He was given IV and p.o. potassium supplements. Electrolytes were monitored. He was given magnesium and phosphate replacement. He was initially given ceftriaxone. Per ID recommendation, he was started on metronidazole. He was advised to restart Genvoya as soon as possible. He was advised to follow -up with his HIV provider to resume his HIV medications to prevent treatment failure and resistance to current regimen he is on. He was given Bactrim for PCP prophylaxis. CD4 count 68. Syphilis screen was reactive with titer of 1:8 which is due to recent syphilis he had and was treated for. Hepatitis screen negative. Giardia serology negative. Entamoeba antibody still pending. Stool ova and parasites negative. Stool OB was negative x1. Diarrhea improved. Per GI, CT did not show any acute findings. Potassium levels improved. Patient had anemia and was given folic acid supplements. He was eventually discharged home. FINAL DIAGNOSES: Diarrhea Hypokalemia Anemia HIV Noncompliance with medications Hypomagnesemia Low folate Drug abuse DISPOSITION: Patient was discharged home. DISCHARGE MEDICATIONS: Refer to Discharge Medication List. DISCHARGE INSTRUCTIONS: Follow-up in a week. I have been assigned to complete a discharge summary on this account, I was not involved with the patient's management. Cary Kruger NP Sep 27, 2018 12:09
== END 2018-09-23 14:23 | disposition home or self-care (01) | DRG 894 ==
LOC: EDBD 13:56 → EMR 15:00 → EDBEDREQ 18:38 → 4E 22:30 → EDBEDREQ 22:58
DX: E87.6 Hypokalemia (principal); B20 Human immunodeficiency virus [HIV] disease; E83.42 Hypomagnesemia; D64.9 Anemia, unspecified; E86.0 Dehydration; R19.7 Diarrhea, unspecified; Z91.14 Patient's other noncompliance with medication regimen; Z86.19 Personal history of other infectious and parasitic diseases; F15.10 Other stimulant abuse, uncomplicated
CPT/HCPCS: 36415; 74177; 80048; 80053; 80307; 81003; 82270; 82550; 82607; 82728; 82746; 82977; 83540; 83550; 83615; 83690; 83735; 83880; 84100; 84439; 84443; 84550; 85007; 85025; 86140; 86360; 86592; 86753; 86780; 86803; 87081; 87086; 87324; 87329; 87340; 87517; 87536; 93005; 96361; 96365; 96375; 99285; J2405; J8499

== ENCOUNTER 2018-09-25 20:59 | Emergency (ER) | payer MEDICAID ==
[~2018-09-25] VITALS: Ht 182.9 cm; Wt 68.0 kg
[~2018-09-25 20:59] MED LIST changes: +AZITHROMYCIN500 MG ORAL; +GENVOYA TABLET1 EACH PO; +IBUPROFEN600 MG ORAL; +LANSOPRAZOLE15 MG ORAL; +LOMOTIL TABLET1 EACH ORAL; +PEPCID AC10 MG PO; +POTASSIUM CHLO10 ME3 ORAL; +POTASSIUM CHLO20 ME2 ORAL; +TUMS200 M1 PO
[2018-09-25 21:00] VITALS: BP 116/70
--- NOTE | 2018-09-25 21:00 | NUR ---
ED Nurse Note: Patient presents with complaints of diarrhea x 1 month with recent admission. patient has history of HIV.
[2018-09-25] MEDS ORDERED: ZZZQUIL25 MG ORAL (21:49)
[2018-09-25] MEDS ORDERED: TUMS X-STR300 MG PO (21:49)
[2018-09-25] MEDS ORDERED: TAGAMET HB200 MG PO (21:49)
[2018-09-25] MEDS ORDERED: NEOSPORIN OINTM30 GM TP (21:49)
[2018-09-25] MEDS ORDERED: BISACODYL5 MG ORAL (21:49)
[2018-09-25] MEDS ORDERED: GENVOYA TABLET1 EACH PO (21:49)
[2018-09-25] MEDS ORDERED: Lidocaine 2% Visc 15ml soln ORAL ONE (22:00)
[2018-09-25] MEDS ORDERED: Dicyclomine HCl 10mg/5ml oral soln ORAL ONE (22:00)
[2018-09-25] MEDS ORDERED: Mylanta II UD 30ml ORAL ONE (22:00)
[2018-09-25 22:02] LABS: BASOPHILS % (AUTO) 1.5 % (0.0-2.0); EOSINOPHILS % (AUTO) 1.6 % (0.0-3.0); HEMATOCRIT 27.9 % (42.0-52.0); HEMOGLOBIN 9.3 G/DL (14.2-18.0); MEAN CORPUSCULAR VOLUME 82 FL (80-99); MONOCYTES % (AUTO) 7.7 % (1.0-10.0); NEUTROPHILS % (AUTO) 53.2 % (45.0-75.0); PLATELET COUNT 399 K/UL (150-450); RED BLOOD COUNT 3.38 M/UL (4.70-6.10); RED CELL DISTRIBUTION WIDTH 12.9 % (11.6-14.8)
--- NOTE | 2018-09-25 22:10 | NUR ---
ED Nurse Note: Patient tolerated medication well, is resting comfortably with frequent audible sounds.
[2018-09-25 22:17] LABS: ANION GAP 8 mmol/L (5-15); BLOOD UREA NITROGEN 12 mg/dL (7-18); CALCIUM 7.8 MG/DL (8.5-10.1); CARBON DIOXIDE 25 MMOL/L (21-32); CHLORIDE 107 MMOL/L (98-107); POTASSIUM 4.5 MMOL/L (3.5-5.1); SODIUM 140 MMOL/L (136-145)
[2018-09-25 22:23] VITALS: BP 116/78
[2018-09-25 22:23] LABS: ALANINE AMINOTRANSFERASE 48 U/L (12-78); ALBUMIN 2.1 G/DL (3.4-5.0); ALBUMIN/GLOBULIN RATIO 0.4 (1.0-2.7); ALKALINE PHOSPHATASE 144 U/L (46-116); ASPARTATE AMINO TRANSFERASE 46 U/L (15-37); BILIRUBIN,TOTAL < 0.1 MG/DL (0.2-1.0)
--- NOTE | 2018-09-25 22:52 | NUR ---
ED Nurse Note: IVF's are complete patient is resting comfortably post GI cocktail. vital signs are stable.
[2018-09-26] MEDS ORDERED: DICYCLOMINE HCL10 MG PO (00:12)
[2018-09-26] MEDS ORDERED: IMODIUM2 MG ORAL (00:12)
--- NOTE | 2018-09-26 00:19 | NUR ---
ED Nurse Note: patient cleared for discharge by [facility], patient is A&Ox4, no s/s of acute distress. is ambulatory with steady gait, vital signs stable. Patient plans to take a taxi to destination with our assistance. IV removed, Id band removed, patient discharged in stable condition.
[2018-09-26 00:22] VITALS: BP 125/73
--- NOTE | 2018-09-26 01:09 | Emergency Room Report ---
History of Present Illness General Chief Complaint: Gastrointestinal Illness Source: Patient, EMS Present Illness HPI 32-year-old male presents ED for evaluation. Patient brought in by EMS. Complaining of diarrhea 1 month. States that he was seen here recently and discharged a few days ago. States that the diarrhea has overall improved but is persisting. States he feels very weak. States that on last admission his potassium and magnesium were low. Notes history of HIV. States he's not been compliant with his medications. Denies fevers or chills. Denies abdominal pain nausea or vomiting. No other aggravating relieving factors. Denies any other associated symptoms Allergies: Coded Allergies: No Known Allergies (Unverified , 01/25/18) Patient History Past Medical History: HIV Past Surgical History: none Pertinent Family History: none Social History: Denies: smoking, alcohol use, drug use Immunizations: UTD Reviewed Nursing Documentation: PMH: Agreed; PSxH: Agreed Nursing Documentation-PMH Hx Cancer: No Hx Gastrointestinal Problems: No Hx Neurological Problems: No Review of Systems All Other Systems: negative except mentioned in HPI Physical Exam Vital Signs Date Time Temp Pulse Resp B/P (MAP) Pulse Ox O2 Delivery O2 Flow Rate FiO2 09/25/18 20:48 99.5 110 16 115/74 100 Room Air Sp02 EP Interpretation: reviewed, normal General Appearance: no apparent distress, alert, GCS 15, non-toxic Head: normocephalic, atraumatic Eyes: bilateral eye normal inspection, bilateral eye PERRL ENT: hearing grossly normal, normal pharynx, no angioedema, normal voice Neck: full range of motion, supple/symm/no masses Respiratory: chest non-tender, lungs clear, normal breath sounds, speaking full sentences Cardiovascular #1: regular rate, rhythm, no edema Cardiovascular #2: 2+ carotid (R), 2+ carotid (L), 2+ radial (R), 2+ radial (L) , 2+ dorsalis pedis (R), 2+ dorsalis pedis (L) Gastrointestinal: normal bowel sounds, non tender, soft, non-distended, no guarding, no rebound Rectal: deferred Genitourinary: normal inspection, no CVA tenderness Musculoskeletal: back normal, gait/station normal, normal range of motion, non- tender Neurologic: alert, oriented x3, responsive, motor strength/tone normal, sensory intact, speech normal Psychiatric: judgement/insight normal, memory normal, mood/affect normal, no suicidal/homicidal ideation Reflexes: 3+ bicep (R), 3+ bicep (L), 3+ tricep (R), 3+ tricep (L), 3+ knee (R) , 3+ knee (L) Skin: normal color, no rash, warm/dry, well hydrated Lymphatic: no adenopathy Medical Decision Making Diagnostic Impression: Primary Impression: HIV (human immunodeficiency virus infection) Qualified Codes: B20 - Human immunodeficiency virus [HIV] disease Additional Impression: Colitis ER Course Hospital Course 32 yo M presents with diarrhea x 1 month differential diagnosis: gastritis, colitis, hypokalemia, gastroenteritis Clinical course Patient placed on stretcher. On media monitor. After initial history and physical I ordered labs, IV fluids Labs - no leukocytosis, hb/hct stable, K ok, Mag 1.1, BUN/Cr normal I reviewed EMR. Patient was recently hospitalized for low potassium and magnesium with the diarrhea. Patient had extensive workup including ID consult. Stool cultures were ultimately negative. Patient states that the diarrhea is overall improved. Discussed findings with patient. I do not believe patient requires admission at this time. Magnesium repleted. Given IV fluids. I explained to the patient that he needs to restart his HIV medications. We'll prescribe loperamide Safe for discharge and close outpatient follow-up. States has a PMD I feel this is a highly complex case requiring extensive working including EKG/ Rhythm strip, Xray/CT/US, Blood/urine lab work, repeat exams while in ED, and administration of strong opiates/narcotics for pain control, admission to hospital or close patient follow up. Diagnosis - HIV, colitis Stable and discharged to home with prescriptions for bentyl, loperamide. Followup with PMD. Return to ED if symptoms recur or worsen Labs Test 09/25/18 21:25 White Blood Count 5.0 K/UL (4.8-10.8) Red Blood Count 3.38 M/UL (4.70-6.10) Hemoglobin 9.3 G/DL (14.2-18.0) Hematocrit 27.9 % (42.0-52.0) Mean Corpuscular Volume 82 FL (80-99) Mean Corpuscular Hemoglobin 27.3 PG (27.0-31.0) Mean Corpuscular Hemoglobin Concent 33.2 G/DL (32.0-36.0) Red Cell Distribution Width 12.9 % (11.6-14.8) Platelet Count 399 K/UL (150-450) Mean Platelet Volume 5.8 FL (6.5-10.1) Neutrophils (%) (Auto) 53.2 % (45.0-75.0) Lymphocytes (%) (Auto) 36.0 % (20.0-45.0) Monocytes (%) (Auto) 7.7 % (1.0-10.0) Eosinophils (%) (Auto) 1.6 % (0.0-3.0) Basophils (%) (Auto) 1.5 % (0.0-2.0) Sodium Level 140 MMOL/L (136-145) Potassium Level 4.5 MMOL/L (3.5-5.1) Chloride Level 107 MMOL/L (98-107) Carbon Dioxide Level 25 MMOL/L (21-32) Anion Gap 8 mmol/L (5-15) Blood Urea Nitrogen 12 mg/dL (7-18) Creatinine 1.0 MG/DL (0.55-1.30) Estimat Glomerular Filtration Rate > 60 mL/min (>60) Glucose Level 91 MG/DL (74-106) Calcium Level 7.8 MG/DL (8.5-10.1) Magnesium Level 1.1 MG/DL (1.8-2.4) Total Bilirubin < 0.1 MG/DL (0.2-1.0) Aspartate Amino Transf (AST/SGOT) 46 U/L (15-37) Alanine Aminotransferase (ALT/SGPT) 48 U/L (12-78) Alkaline Phosphatase 144 U/L (46-116) Total Protein 7.8 G/DL (6.4-8.2) Albumin 2.1 G/DL (3.4-5.0) Globulin 5.7 g/dL Albumin/Globulin Ratio 0.4 (1.0-2.7) Lipase 164 U/L (73-393) Last Vital Signs Date Time Temp Pulse Resp B/P (MAP) Pulse Ox O2 Delivery O2 Flow Rate FiO2 09/26/18 00:22 99.5 98 19 125/73 100 Room Air Status: improved Disposition: HOME, SELF-CARE Condition: Stable Scripts Dicyclomine Hcl* (DICYCLOMINE HCL*) 10 Mg Capsule 10 MG PO QID, #20 CAP Prov: Claude Joaquin MD 09/26/18 Loperamide HCl (Loperamide) 2 Mg Capsule 2 MG ORAL Q4H, #20 CAP 0 Refills Prov: Claude Joaquin MD 09/26/18 Patient Instructions: Dehydration, Adult, [id number] Claude Joaquin MD Sep 26, 2018 01:09
== END 2018-09-26 00:38 | disposition home or self-care (01) ==
LOC: EDBD 20:59 → EMR 21:30
DX: K52.9 Noninfective gastroenteritis and colitis, unspecified (principal); B20 Human immunodeficiency virus [HIV] disease
CPT/HCPCS: 36415; 80053; 83690; 83735; 85025; 96361; 96365; 96375; 99284; S0028